=== PATIENT | female | born 1955 | race African-American/Black ===

== ENCOUNTER 2021-05-27 08:17 | Outpatient (REF) | payer OTHER, SELFPAY ==
--- NOTE | ~2021-05-27 | MM_ITS ---
EXAMINATION: MM SCREENING DIGITAL BREAST TOMOSYNTHESIS, BILATERAL CLINICAL INFORMATION: Screening. Asymptomatic. The lifetime risk of breast cancer based on the Tyrer-Cuzick Model is 9%. COMPARISON: Mammography: 05/25/2019 TECHNIQUE: Digital breast tomosynthesis is performed in both the craniocaudal and mediolateral oblique views along with computer-aided detection (CAD). Synthesized 2D images are generated from the tomosynthesis. FINDINGS: There are scattered areas of fibroglandular density (ACR BI-RADS breast composition Category b). There are no significant masses, abnormal calcifications, or other abnormalities. Parenchymal pattern is similar to prior studies. No developing density. The axilla are unremarkable. There are no significant changes. MM/MM tomosynthesis screening BI IMPRESSION: No mammographic evidence of malignancy. ASSESSMENT: BI-RADS 2: Benign RECOMMENDATION: Routine annual mammography screening. This patient's information was entered into a reminder system with a target due date for their next mammogram.
== END 2021-05-27 08:18 | disposition home or self-care (01) ==
LOC: HO.MAMMO 08:17
PROVIDERS: Visit Provider Family Medicine
DX: Z12.31 Encounter for screening mammogram for malignant neoplasm of breast (principal)
CPT/HCPCS: 77063; 77067

== ENCOUNTER 2023-05-02 16:12 | Emergency (ER) | payer OTHER, SELFPAY ==
--- NOTE | ~2023-05-02 | CT_ITS ---
EXAMINATION: CT HEAD WITHOUT CONTRAST CLINICAL INFORMATION: Dizziness. COMPARISON: No relevant prior imaging. TECHNIQUE: Contiguous axial imaging was performed from the skull base to vertex without intravenous administration of contrast. This CT examination was performed using dose optimization techniques as appropriate, variously including the following: *Automated exposure control *Adjustment of mA and/or kV according to patient size (this includes techniques or standardized protocols for targeted exams where dose is matched to indication/reason for exam; i.e. extremities or head) *Use of iterative reconstruction technique DLP: 650 mGy-cm FINDINGS: There is no acute intracranial hemorrhage or abnormal extra-axial collection. No intracranial mass effect or midline shift. Lateral and third ventricles are normal. No hydrocephalus. Champagne-white matter differentiation is preserved and there is no evidence of acute territorial infarct. 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 The calvarium and skull base are otherwise intact. No mastoid or middle ear effusion. Moderate paranasal sinus disease is partially visualized within the right maxillary sinus. 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 Comparison with prior imaging is recommended if available. Alternatively a brain MRI without and with contrast can be obtained for better anatomic characterization. Otherwise unremarkable examination in that there is no evidence of acute territorial infarct or hemorrhage.
[2023-05-02 17:00] VITALS: BP 177/76; PULSE 60; RESP 16; TEMP 36.6; O2SAT 97; BMI 39.3
--- NOTE | 2023-05-02 17:04 | ED.GENADULT ---
[facility] - General Adult General Chief complaint: General Medical Stated complaint: high bp,left leg pain, states off balance Time Seen by Provider: 05/03/23 01:58 Source: patient and family Mode of arrival: ambulatory History of Present Illness HPI narrative: 68-year-old female with headache for the past week and also reports high blood pressure, she has not taken anything for the headache she also reports that she had some blurry vision but otherwise no fever, chills. She denies any speech problems and denies any numbness/tingling/unilateral weakness or facial asymmetry. Related Data Allergies Allergy/AdvReac Type Severity Reaction Status Date / Time codeine Allergy Unknown Verified 05/02/23 17:07 lisinopril AdvReac Cough Verified 05/02/23 17:07 sulfer Allergy Blister Uncoded 05/02/23 17:07 Review of Systems Review of Systems: Pertinent positives and negatives as stated in [facility] Past Medical History Source: nursing notes reviewed Social History Social History Advance Directives: No Advance Directives Information Provided: Yes Physical Exam ED Vital Signs: Vital Signs - 24 hr 05/02/23 17:00 05/03/23 00:54 05/03/23 02:09 Temperature 97.8 F 98.6 F 97.8 F Pulse Rate 60 55 54 Respiratory Rate 16 18 16 Blood Pressure 177/76 H 182/74 H 157/81 H Pulse Oximetry 97 98 97 Oxygen Delivery Method Room Air Room Air Room Air BMI result Body Mass Index 39.3 VITAL SIGNS: Reviewed. GENERAL: Well developed, well nourished, in no acute distress. HEAD: Normocephalic/atraumatic EYES: PERRLA, EOMI OD: 20/50, BOTH: 20/30, OS: 20/30 EARS: Ext canals without abnormality, TMs non-bulging and non-erythematous NOSE: Nares patent bilateral OROPHARYNX: no oral lesions noted, posterior pharynx clear NECK: Supple, no adenopathy LUNGS: Normal breath sounds. No adventitious sounds or accessory muscle use. SpO2<97> CARDIOVASCULAR: Regular rate and rhythm without noted murmurs ABDOMEN: Soft, non-tender, non-distended with bowel sounds. MUSCULOSKELETAL: No tenderness, deformities, or effusions noted on gross inspection. EXTREMITIES: No cyanosis, clubbing or edema. SKIN: Inspection of the skin reveals no rashes NEUROLOGIC: Alert and oriented x 4. Strength and sensation to light touch were grossly intact x 4. Course Course Course Narrative: RME performed by Judi Roblero PA-C. Patient is a 68 year old assigned female at presenting to the emergency department with blurry vision and high blood pressure x4 days. Detailed physical exam and review of systems are deferred to the pug mill operator. Labs and imaging ordered. Patient placed back in the waiting room pending room availability and results. Medical Decision Making Medical Decision Making MDM Narrative: 68-year-old female with history and clinical presentation, DDX: Poorly-controlled blood pressure, headache, patient otherwise appears to be nonfocal and visual acuity does not indicate significant visual changes. I reviewed all investigations and hematologic indices are negative for leukocytosis or left shift, there is no anemia or thrombocytopenia. Chemistry disease do not demonstrate an DEEJAY there is no electrolyte or liver enzyme derangements. High sensitivity troponin is undetectable. Urinalysis is negative for UTI or hematuria. Viral testing is negative for COVID. CT scan does not demonstrate any intracranial bleeding or mass effect but does identify lucencies within the calvarium that appear to be consistent with hemangiomas. Patient remains nonfocal and is otherwise discharged home. Differential Diagnosis Differential Diagnoses: The differential diagnosis associated with the presentation includes Please see the discussion above Admission/Observation Consideration of admission/observation: Escalation of care including admission/observation considered Please see the discussion above Lab Data [facility] Lab Attestation statement: I reviewed the patient's lab results. Please see the discussion above 05/02/23 17:46 05/02/23 20:13 Labs: Lab Results 05/02/23 05/02/23 05/02/23 Range/Units 17:46 17:55 20:13 WBC 7.3 (4.8-10.8) X10*3/uL RBC 5.64 H (4.20-5.50) X10*6/uL Hgb 14.3 (12.0-16.0) g/dl Hct 44.8 (37.0-47.0) % MCV 79.4 L (80.0-98.0) fL MCH 25.4 L (27.0-33.0) pg MCHC 31.9 (31.0-35.0) g/dl RDW 15.3 (11.0-16.0) % Plt Count 330 (160-400) X10*3/uL MPV 10.3 (9.4-12.3) fL Immature Gran % (Auto) 0.5 H (0.0-0.4) % Neut % (Auto) 60.6 (45-73) % Lymph % (Auto) 29.7 (20-40) % Dewitt % (Auto) 7.1 (2-11) % Eos % (Auto) 1.6 (0-4) % Baso % (Auto) 0.5 (0-2) % Lymph # (Auto) 2.2 (1.2-4.9) X10*3/uL Dewitt # (Auto) 0.5 (0.1-1.2) X10*3/uL Eos # (Auto) 0.1 (0.0-0.4) X10*3/uL Baso # (Auto) 0.0 (0.0-0.2) X10*3/uL Abs Immat Gran (auto) 0.04 H (0.00-0.03) X10*3/uL Absolute Neuts (auto) 4.4 (2.0-8.3) x10*3/uL Absolute Nucleated RBC 0.000 (0.0-0.012) X10*3/uL Nucleated RBC % (auto) 0.0 (0.0-0.2) /100WBC Sodium 141 (135-145) mmol/L Potassium 3.8 (3.3-5.1) mmol/L Chloride 104 (96-108) mmol/L Carbon Dioxide 28 (22-29) mmol/L Anion Gap 13 (12-20) BUN 17 H (9-16) mg/dL Creatinine 0.80 (0.5-1.4) mg/dL Estim Creat Clear Calc 69.7 Estimated GFR > 60 POC Glucose (60-115) mg/dL Random Glucose 111 (60-115) mg/dL Calcium 9.8 (8.4-10.2) mg/dL Magnesium 1.8 (1.6-2.6) mg/dL Total Bilirubin 0.4 (0.0-1.0) mg/dL AST 15 (5-31) U/L ALT 15 (0-31) U/L Alkaline Phosphatase 83 (39-117) U/L Troponin I High Sens < 2.7 (<3.5-17.0) ng/L Total Protein 7.6 (6.5-8.0) g/dL Albumin 4.1 (3.5-5.0) g/dL Urine Color Yellow Urine Appearance Clear Urine pH 5.5 (5.0-9.0) Ur Specific [place] 1.025 (1.005-1.025) Urine Protein Negative (Neg-Trace) mg/dL Urine Glucose (UA) Negative (Negative) mg/dL Urine Ketones Negative (Negative) mg/dL Urine Blood Negative (Negative) Urine Nitrite Negative (Negative) Ur Leukocyte Esterase Negative (Negative) COVID-19 (ELIZABETH) Negative (Negative) COVID-19 Clin Com See Note 05/03/23 Range/Units 00:53 WBC (4.8-10.8) X10*3/uL RBC (4.20-5.50) X10*6/uL Hgb (12.0-16.0) g/dl Hct (37.0-47.0) % MCV (80.0-98.0) fL MCH (27.0-33.0) pg MCHC (31.0-35.0) g/dl RDW (11.0-16.0) % Plt Count (160-400) X10*3/uL MPV (9.4-12.3) fL Immature Gran % (Auto) (0.0-0.4) % Neut % (Auto) (45-73) % Lymph % (Auto) (20-40) % Dewitt % (Auto) (2-11) % Eos % (Auto) (0-4) % Baso % (Auto) (0-2) % Lymph # (Auto) (1.2-4.9) X10*3/uL Dewitt # (Auto) (0.1-1.2) X10*3/uL Eos # (Auto) (0.0-0.4) X10*3/uL Baso # (Auto) (0.0-0.2) X10*3/uL Abs Immat Gran (auto) (0.00-0.03) X10*3/uL Absolute Neuts (auto) (2.0-8.3) x10*3/uL Absolute Nucleated RBC (0.0-0.012) X10*3/uL Nucleated RBC % (auto) (0.0-0.2) /100WBC Sodium (135-145) mmol/L Potassium (3.3-5.1) mmol/L Chloride (96-108) mmol/L Carbon Dioxide (22-29) mmol/L Anion Gap (12-20) BUN (9-16) mg/dL Creatinine (0.5-1.4) mg/dL Estim Creat Clear Calc Estimated GFR POC Glucose 147 H (60-115) mg/dL Random Glucose (60-115) mg/dL Calcium (8.4-10.2) mg/dL Magnesium (1.6-2.6) mg/dL Total Bilirubin (0.0-1.0) mg/dL AST (5-31) U/L ALT (0-31) U/L Alkaline Phosphatase (39-117) U/L Troponin I High Sens (<3.5-17.0) ng/L Total Protein (6.5-8.0) g/dL Albumin (3.5-5.0) g/dL Urine Color Urine Appearance Urine pH (5.0-9.0) Ur Specific [place] (1.005-1.025) Urine Protein (Neg-Trace) mg/dL Urine Glucose (UA) (Negative) mg/dL Urine Ketones (Negative) mg/dL Urine Blood (Negative) Urine Nitrite (Negative) Ur Leukocyte Esterase (Negative) COVID-19 (ELIZABETH) (Negative) COVID-19 Clin Com Independent Interpretation I performed an independent interpretation of an: EKG Interpretation: Sinus bradycardia, HR-54, ND/QRS/QTC is within normal limits., no STEMI Radiology Impression Discussion of test interpretation with radiology: I have reviewed the radiologist's reading. Radiologist Impression: Please see the discussion above Chronic Conditions Patient?s care impacted by: Hypertension Critical Care Time Critical Care Time Critical Care Time: Yes Total Critical Care Time: 45 Attestation: I personally attest to this time spent taking care of the patient. Discharge Plan Discharge Clinical Impression: Headache, Blurred vision Patient Disposition: Home, Self-Care Instructions: General Headache (ED), Blurred Vision (ED) Referrals: Meg Wade MD [Primary Care Provider] -
--- NOTE | 2023-05-02 17:05 | ECG_ITS ---
Test Reason : DIZZINESS Blood Pressure : / mmHG Vent. Rate : 054 BPM Atrial Rate : 054 BPM P-R Int : 174 ms QRS Dur : 086 ms QT Int : 408 ms P-R-T Axes : 042 048 037 degrees QTc Int : 386 ms Sinus bradycardia Otherwise normal ECG No previous ECGs available Referred By: Judi Roblero Electronically Signed By:Jason Ernandez
[2023-05-02 18:02] LABS: MANUAL DIFF FLAG NO
[2023-05-02 18:09] LABS: Appearance Urine Clear; Color Urine Yellow; Glucose Urine UA Negative (Negative); Leukocyte Esterase Urine Negative (Negative); Nitrite Urine Negative (Negative); PH 5.5 (5.0-9.0); Specific Gravity - Urine 1.025 (1.005-1.025); Urine Blood Negative (Negative); Urine Ketones Negative (Negative); Urine Protein Negative (Neg-Trace)
[2023-05-02 18:20] LABS: COVID-19 Test Negative (Negative); IDNOW Serial# 152EDE1D
[2023-05-02 18:27] LABS: Basophils Percent Auto 0.5 % (0-2); Eosinophils Absolute Auto 0.1 X10*3/uL (0.0-0.4); Eosinophils Percent Auto 1.6 % (0-4); Hematocrit 44.8 % (37.0-47.0); Hemoglobin 14.3 g/dl (12.0-16.0); Imm Gran Abs Auto 0.04 X10*3/uL (0.00-0.03); Imm Gran Pct Auto 0.5 % (0.0-0.4); Lymphocytes Absolute Auto 2.2 X10*3/uL (1.2-4.9); Lymphocytes Percent Auto 29.7 % (20-40); Mean Corpuscular HGB Conc 31.9 g/dl (31.0-35.0); Mean Corpuscular Hemoglobin 25.4 pg (27.0-33.0); Mean Corpuscular Volume 79.4 fL (80.0-98.0); Mean Platelet Volume 10.3 fL (9.4-12.3); Monocytes Absolute Auto 0.5 X10*3/uL (0.1-1.2); Monocytes Percent Auto 7.1 % (2-11); Neutrophils Absolute Auto 4.4 x10*3/uL (2.0-8.3); Neutrophils Percent Auto 60.6 % (45-73); Platelet Count 330 X10*3/uL (160-400); Red Blood Count 5.64 X10*6/uL (4.20-5.50); Red Cell Distribution Width 15.3 % (11.0-16.0); White Blood Count 7.3 X10*3/uL (4.8-10.8)
[2023-05-02 20:31] LABS: Alanine Aminotransferase 15 U/L (0-31); Albumin Level 4.1 g/dL (3.5-5.0); Alkaline Phosphatase 83 U/L (39-117); Anion Gap 13 (12-20); Aspartate Amino Transferase 15 U/L (5-31); Bilirubin Total 0.4 mg/dL (0.0-1.0); Blood Urea Nitrogen 17 mg/dL (9-16); Calcium 9.8 mg/dL (8.4-10.2); Carbon Dioxide 28 mmol/L (22-29); Chloride 104 mmol/L (96-108); Creatinine Clr Calc Pharmacy 69.7; Estimated Glomerular Filt Rate > 60; Glucose Random 111 mg/dL (60-115); Magnesium 1.8 mg/dL (1.6-2.6); Potassium 3.8 mmol/L (3.3-5.1); Sodium 141 mmol/L (135-145); Total Protein 7.6 g/dL (6.5-8.0)
[2023-05-02 20:39] LABS: Troponin-I High Sensitivity < 2.7 ng/L (<3.5-17.0)
[2023-05-03 00:54] VITALS: BP 182/74; PULSE 55; RESP 18; TEMP 37; O2SAT 98
[2023-05-03 01:07] LABS: Glucose, Whole Blood 147 mg/dL (60-115)
[2023-05-03 02:09] VITALS: BP 157/81; PULSE 54; RESP 16; TEMP 36.6; O2SAT 97
--- NOTE | 2023-05-03 04:00 | PC.NURSE ---
upon assessing pt speaking full clear sentences. axox4. PERRLA. neuros intact. pt ambulatory with steady gait. vision acuity as documented. nad. resp even and unlabored. bp improved. call larry within reach.
== END 2023-05-03 05:19 | disposition home or self-care (01) ==
PROVIDERS: Physician Assistant Medical; Emergency Provider Student in an Organized Health Care Education/Training Program; PCP Family Medicine
DX: R51.9 Headache, unspecified (principal); H53.8 Other visual disturbances; R00.1 Bradycardia, unspecified; R42 Dizziness and giddiness; Z11.52 Encounter for screening for COVID-19; Z79.899 Other long term (current) drug therapy
CPT/HCPCS: 70450; 80053; 81003; 82947; 83735; 84484; 85025; 87635; 93005; 99284

== ENCOUNTER → 2023-05-02 17:05 | Outpatient (BNV) | payer OTHER, SELFPAY | PROVIDERS: Emergency Provider Student in an Organized Health Care Education/Training Program; PCP Family Medicine; Visit Provider Internal Medicine Cardiovascular Disease | DX: R42 Dizziness and giddiness (principal) | CPT/HCPCS: 93010 ==

== ENCOUNTER 2023-07-04 07:26 | Outpatient (REF) | payer OTHER, SELFPAY | END 2023-07-04 07:27 | disposition home or self-care (01) | LOC: HO.MAMMO 07:26 | PROVIDERS: PCP Family Medicine; Visit Provider Nurse Practitioner Family | DX: Z12.31 Encounter for screening mammogram for malignant neoplasm of breast (principal) | CPT/HCPCS: 77063; 77067 ==

== ENCOUNTER → 2023-07-04 07:45 | Outpatient (BNV) | payer OTHER, SELFPAY | PROVIDERS: PCP Family Medicine; Visit Provider Radiology Diagnostic Radiology | DX: Z12.31 Encounter for screening mammogram for malignant neoplasm of breast (principal) | CPT/HCPCS: 77063; 77067 ==

== ENCOUNTER 2024-05-10 10:41 | Outpatient (AMB) | payer OTHER, SELFPAY ==
--- NOTE | 2024-05-10 11:43 | A.OFFVIS_ITS ---
Intake Visit Reasons: recurrent UTI Intake Note: New patient Presents for Recurrent UTI Any Urology Medication: None Antibiotic Allergies: None Blood Thinners: None PVR:0ML Allergies codeine Allergy (Verified 05/02/23 17:07) Unknown lisinopril Adverse Reaction (Verified 05/02/23 17:07) Cough sulfer Allergy (Uncoded 05/02/23 17:07) Blister HPI Comments Details: Rebecca is a 69-year-old female who is here for evaluation due to gross hematuria and recurrent UTIs. The patient is a . She was in the [employer]. She states that she had complicated UTI as she was told the bacteria was resistant to many antibiotics. She states that this may have been due to the fact she had treatment with antibiotics for several infections including a sinus infection and tooth abscess. The patient has history of hysterectomy. I have discussed therapy with use of low-dose estrogen vaginal therapy with Vagifem. I have discussed further evaluation with CT urogram and office cystoscopy. [facility] Medical History (Updated 05/10/24 @ 12:31 by Gabby Rayo MD) Vitamin D deficiency Type 2 diabetes mellitus without complication Restless leg syndrome Primary insomnia Postmenopausal atrophic vaginitis Other obesity due to excess calories Obstructive sleep apnea (adult) (pediatric) Major depressive disorder with single episode Hyperlipidemia Depression Essential (primary) hypertension Disorder of bone density and structure, unspecified Benign neoplasm of colon Allergic rhinitis due to pollen Surgical History (Updated 05/03/24 @ 14:20 by [facility]) H/O: hysterectomy Review of Systems Const All systems reviewed & are unremarkable except as noted in HPI and below Reports no additional complaints Eyes Reports no additional complaints ENT Reports no additional complaints Card Reports no additional complaints Resp Reports no additional complaints GI Reports no additional complaints Reports as per HPI Musc Reports no additional complaints Skin/Breast Reports system reviewed and no additional complaints, except as documented Neuro Reports no additional complaints Psych Reports no additional complaints Endo Reports no additional complaints Alireza/Lymph Reports no additional complaints Aller/Immun Reports no additional complaints Physical Exam Const General: cooperative, healthy appearing and no acute distress Orientation/consciousness: patient oriented x3 HEENT Head: Yes normal to inspection, Yes normocephalic and Yes atraumatic Eyes Conjunctivae: conjunctivae normal Neck Neck: Yes normal visual inspection and Yes trachea midline Chest Chest palpation & inspection: normal inspection of the chest Resp Effort & Inspection: normal respiratory effort GI Inspection: Yes normal to inspection Neuro General: patient oriented x3 Psych Appearance: grossly normal Office Procedures Post Void Residual Post Residual Void Post Void Residual (PVR): 0 21230-Rphj Void Residual by ultrasound Results AMB Urinalysis, Automated UA Leukoctes 0 Az/uL Last Edit by Susi Zarate [facility] on 05/10/24 12:19 UA Nitrite Negative Last Edit by Susi Zarate, [facility] on 05/10/24 12:19 UA Urobilinogen 0.2 mg/dL Last Edit by Susi Zarate, A on 05/10/24 12:1 9 UA Protein 0.3 mg/dL Last Edit by Susi Zarate [facility] on 05/10/24 12:19 UA pH 5.5 Last Edit by Susi Zarate, [facility] on 05/10/24 12:19 UA Blood 0 Hamzah/uL Last Edit by Susi Zarate [facility] on 05/10/24 12:19 UA Specific [place] 1.020 Last Edit by Susi Zarate [facility] on 05/10/24 12: 19 UA Ketone Positive Last Edit by Susi Zarate, [facility] on 05/10/24 12:19 UA Bilirubin 0 mg/dL Last Edit by Susi Zarate [facility] on 05/10/24 12:19 UA Glucose 0 mg/dL Last Edit by Susi Zarate [facility] on 05/10/24 12:19 Results Reviewed Results Reviewed: Laboratory Last Values Urine pH (Auto) 5.5 05/10/24 12:16 Specific [place] (Auto) 1.020 05/10/24 12:16 Urine Protein (Auto) 0.3 mg/dL 05/10/24 12:16 Glucose (UA)(Auto) 0 mg/dL 05/10/24 12:16 Urine Ketones (Auto) Positive 05/10/24 12:16 Urine Blood (Auto) 0 Hamzah/uL 05/10/24 12:16 Urine Nitrite (Auto) Negative 05/10/24 12:16 Urine Bilirubin (Auto) 0 mg/dL 05/10/24 12:16 Urine Urobilinogen (Auto) 0.2 mg/dL 05/10/24 12:16 Leukocyte Esterase (Auto) 0 Az/uL 05/10/24 12:16 Assessment & Plan Assessment & Plan (1) Gross hematuria: Code(s): R31.0 - Gross hematuria Category: Medical Plan estradiol (Vagifem) CT urogram follow-up office cystoscopy Orders: Orders AMB Post Void Residual by ultrasound Today Z13.9 - Encounter for screening, unspecified CT urogram Today R31.0 - Gross hematuria Blood Urea Nitrogen Today R31.0 - Gross hematuria AMB Urinalysis Automated Today Z13.9 - Encounter for screening, unspecified Creatinine Today R31.0 - Gross hematuria Medications: New estradiol (Vagifem) Insert vaginally two times a week Tuesday and at Bedtime 10 mcg vaginal 2XW 24 tabs 1RF estradiol (Vagifem) Insert vaginally two times a week Tuesday and at Bedtime. 10 mcg vaginal 2XW 24 tabs 1RF estradiol (Vagifem) Insert vaginally two times a week Tuesday and at Bedtime. 10 mcg vaginal 2XW 24 tabs 1RF Patient Instructions: The patient had an opportunity to ask questions regarding treatment plan. The patient expressed understanding and agreement with the above treatment plan. The patient is aware they should contact our office by phone for worsening of their current condition or the appearance of new symptoms. Compliance is encouraged with any medications and followup testing that is ordered. It is a privilege to be allowed the opportunity to participate in the urologic care of your patient. If you have any questions or concerns regarding treatment for the above conditions please do not hesitate to contact me. The office telephone contact is [phone]. This note is constructed in part using voice recognition software. While every effort has been made to ensure accuracy transport coordinator errors may have been included. Yours sincerely, Gabby Rayo MD Coding Level of Care Code New Pt Level 4 (89311) Diagnoses Gross hematuria R31.0 CPT Codes Post Residual Void - PVR CPT Code: 31515-Zfjz Void Residual by ultrasound ([id number])
--- OUTSIDE RECORDS SUMMARY | 2024-05-10 11:52 | XMS_ITS | Clinical Summary ---
Author Organization [facility] Address [address] [place] [address] Phone Care Team Providers Care Tobacco Drier Operator Name Role Phone Maribel Sibley Primary Care Provider [phone] Allergies Active Allergy Reactions Criticality Noted Date Comments Codeine Chills 01/23/2024 Lisinopril Cough 01/23/2024 Medications atenoloL (TENORMIN) 50 mg tablet Take 50 mg by mouth daily. Active bisacodyL (DULCOLAX) 5 mg EC tablet Take 2 tabs by mouth right before beginning bowel prep. Follow instructions given by office for timing. 3 Active calcium carbonate-vitam in D 500 mg-5 mcg (200 unit) per tablet Take 1 Tablet by mouth 2 times daily (with meals). Active carboxymethylce llulose (REFRESH PLUS) 0.5 % ophthalmic solution 1 Drop 3 times daily as needed. Active cetirizine (ZyrTEC) 10 mg tablet Take 10 mg by mouth daily. Active cyanocobalamin (VITAMIN B-12) 1,000 mcg tablet Take 1,000 mcg by mouth daily. Active docusate sodium (COLACE) 100 mg capsule Take 100 mg by mouth 2 times daily. Active guaiFENesin 200 mg tablet Take 400 mg by mouth every 4 hours as needed. Active hydroCHLOROthia zide (HYDRODIURIL) 25 mg tablet Take 25 mg by mouth daily. Active losartan (COZAAR) 100 mg tablet Take 100 mg by mouth daily. Active losartan (COZAAR) 50 mg tablet Take 50 mg by mouth daily. Active MULTIVITAMIN ORAL Take by mouth. Activ e naltrexone-bupr opion (Contrave) 8-90 mg per ER tablet Take by mouth. Activ e omega-3 acid ethyl esters (LOVAZA) 1 gram capsule Take by mouth. Activ e phentermine-top iramate 7.5-46 mg capsule, ER multiphase 24 hr Take by mouth. Activ e polyethylene glycol (GoLYTELY) 236-22.74-6.74 -5.86 gram solution Take 4 L by mouth once for 1 dose. (May substitute any PEG) Mix prep according to directions. Drink one 8oz glass at your own pace until half the gallon is completed. Rest and then finish the second half, one 8oz glass at your own pace until gallon is complete. Follow directions given by office for timing. 3 Active simvastatin (ZOCOR) 40 mg tablet Take 1 tablet (40 mg total) by mouth at bedtime. Active triamcinolone (NASACORT) 55 mcg nasal inhaler by Nasal route. Acti ve methocarbamoL (ROBAXIN) 750 mg tablet Take 1 tablet (750 mg total) by mouth 4 (four) times a day for 7 days. 28 each 4 Active Active Problems No known active problems Encounters Date Type Department Care Team Description 02/25/2024 2:29 PM EST - 02/25/2024 4:02 PM EST Emergency [facility] Emergency [address] [place] [address] Pain in abdominal muscle of right flank (Primary Dx) Discharge Disposition: Home or Self Care from Last 3 Months Immunizations Name Administration Dates Next Due Influenza Quadrivalent, 0.5m l, preservative free (Fluarix; FluLaval; Fluzone) ages 6mo and older (Afluria) 3yo and older 12/03/2020,01/15/2020,02/02/2019,12/23 Moderna SARS-CoV-2 COVID-19, mRNA, LNP-S, preservative free 03/25/2021,06/11/2020,05/14/2020 Pneumococcal polysaccharide 23 valent (Pneumovax 23) 2yo and older 03/04/2017 Tdap Tetanus diptheria acell ular pertussis (Boostrix; Adacel) 7yo and older 03/04/2017 Medical History Medical History Date Comments Hypertension Diabetes mellitus (CMS/HCC) High cholesterol Social History Tobacco Use Types Packs/Day Years Used Date Smoking Tobacco: Former Cigarettes Smokeless Tobacco: Never Tobacco Cessation:Counseling Given: Not Answered Alcohol Use Standard Drinks/Week Comments Never 0 (1 standard drink = 0.6 oz pur e alcohol) Comments No Sex and Gender Information Value Date Recorded Sex Assigned at Not on file Legal Sex Female 6:17 PM EST Gender Identity Not on file Sexual Orientation Not on file Obstetrics History Last Filed Vital Signs Vital Sign Reading Time Taken Comments Blood Pressure 146/74 02/25/2024 3:33 PM EST Pulse 59 02/25/2024 3:33 PM EST Temperature 36.5 ??C (97.7 ??F) 02/25/2024 12:[address] Respiratory Rate 18 02/25/2024 3:33 PM EST Oxygen Saturation 99% 02/25/2024 3:33 PM EST Inhaled Oxygen Concentration - - Weight 90.7 kg (200 lb) 02/25/2024 12:41 PM EST Height 154.9 cm (5' 1 ) 02/25/2024 12:41 PM EST Body Mass Index 37.79 02/25/2024 12:41 PM EST Plan of Treatment Upcoming Encounters Date Type Department Care Team (Late st Contact Info) Description 05/24/2024 10:30 AM EST Office Visit Obstetrics & Gynecology - [address] [address] Debbie Aguilar, [facility] [address] [place] [id number] Health Maintenance Due Date Last Done Comments Breast Cancer Screening 1955 Zoster Vaccines (1 of 2) 2007 Pneumococcal Vaccine: 50+ Years (2 of 2 - PCV) 03/04/2018 03/04/2017 Depression Screening 06/13/2022 Falls Risk Assessment 06/13/2022 Hepatitis C Screening 06/13/2022 Medicare Annual Wellness Visit 06/13/2022 Osteoporosis Screening (Bone Density Screening) 06/13/2022 Social Influencers of Health Screening 06/13/2022 COVID-19 Vaccine ( season) 2023 03/25/2021, 06/11/2020, 05/14/2020 Influenza Vaccine (#1) 2023 , 01/15/2020, 02/02/2019, Additional history exists DTaP,Tdap,and Td Vaccines (2 - Td or Tdap) 03/04/2027 03/04/2017 Colorectal Cancer Screening: Colonoscopy 01/21/2028 01/20/2023 RSV Immunization Patients 60+ Years Old (1 - 1-dose 75+ series) 01/14/2032 HIB Vaccines Aged Out No longer eligi ble based on patient's age to complete this topic HPV Vaccines Aged Out No longer eligi ble based on patient's age to complete this topic Hepatitis A Vaccines Aged Out No long er eligible based on patient's age to complete this topic Hepatitis B Vaccines Aged Out No long er eligible based on patient's age to complete this topic IPV Vaccines Aged Out No longer eligi ble based on patient's age to complete this topic MMR Vaccines Aged Out No longer eligi ble based on patient's age to complete this topic Meningococcal ACWY Vaccine Aged Out N o longer eligible based on patient's age to complete this topic Meningococcal B Vacine Aged Out No lo nger eligible based on patient's age to complete this topic RSV Immunization Patients Under 20 months Aged Out No longer eligible based on patient's age to complete this topic Varicella Vaccines Aged Out No longer eligible based on patient's age to complete this topic Procedures Procedure Name Priority Date/Time Associated Diagnosis Comments [place] URINE CULTURE TUBE STAT 02/25/2024 1:32 PM EST URINALYSIS WITH REFLEX MICROSCOPIC AND CULTURE STAT 02/25/2024 1:32 PM EST CBC WITH AUTO DIFFERENTIAL STAT 02/25/2024 1:32 PM EST URINALYSIS WITH REFLEX MICROSCOPIC AND CULTURE STAT 02/25/2024 1:32 PM EST COMPREHENSIVE METABOLIC PANEL STAT 02/25/2024 1:32 PM EST CBC AND DIFFERENTIAL STAT 02/25/2024 1:32 PM EST HM COLONOSCOPY Routine 01/20/2023 from Last 3 Months or Most Recently Relevant to Health Maintenance Results * Urinalysis with reflex microscopic and culture (02/25/2024 1:32 PM EST) Specific [place] Urine 1.020 1.003 - 1.030 LAB URINALYSIS - AUTOMATED METHOD 02/25/2024 1:52 PM [facility] pH, Urine 7.0 5.0 - 8.0 pH LAB URINALYSIS - AUTOMATED METHOD 02/25/2024 1:52 PM [facility] Leukocytes, Urine Negative Negative LAB URINALYSIS - AUTOMATED METHOD 02/25/2024 1:52 PM [facility] Nitrite, Urine Negative Negative LAB URINALYSIS - AUTOMATED METHOD 02/25/2024 1:52 PM [facility] Protein, Urine Negative <=Trace mg/dL LAB URINALYSIS - AUTOMATED METHOD 02/25/2024 1:52 PM [facility] Glucose, Urine Negative Negative mg/dL LAB URINALYSIS - AUTOMATED METHOD 02/25/2024 1:52 PM [facility] Ketones, Urine Negative Negative mg/dL LAB URINALYSIS - AUTOMATED METHOD 02/25/2024 1:52 PM [facility] Urobilinogen, Urine 0.2 0.2 - 1.0 mg/dL LAB URINALYSIS - AUTOMATED METHOD 02/25/2024 1:52 PM [facility] Bilirubin, Urine Negative Negative LAB URINALYSIS - AUTOMATED METHOD 02/25/2024 1:52 PM [facility] Blood, Urine Negative Negative LAB URINALYSIS - AUTOMATED METHOD 02/25/2024 1:52 PM [facility] Urine Urine specimen obtained by clean catch procedure / Unknown Non-blood Collection / Unknown 02/25/2024 1:32 PM EST 02/25/2024 1:43 PM EST Reddy P Neenan DO LAB URINE ORDERABLES Final Res ult Performing Organization Address [facility]/ZIP Co de Phone Number [facility] [address] [place] [address], [place] [phone] * [place] urine culture tube (02/25/2024 1:32 PM EST) Pathologist [facility] Extra Tube Hold for add-ons. 02/25/2024 3:02 PM EST [facility] Comment:Auto resulted. Urine Urine specimen obtained by clean catch procedure / Unknown Non-blood Collection / Unknown 02/25/2024 1:32 PM EST 02/25/2024 1:43 PM EST Reddy Arroyo DO LAB URINE ORDERABLES Final Res ult Performing Organization Address [facility]/ZIP Co de Phone Number [facility] [address] [place] [address], [place] [phone] * (ABNORMAL) CBC auto differential (02/25/2024 1:32 PM EST) [facility] WBC 8.7 4.8 - 10.8 K/mcL LAB HEMETOLOGY METHOD 02/25/2024 1:48 PM [facility] RBC 5.10(H) 3.80 - 4.80 M/mcL LAB HEMETOLOGY METHOD 02/25/2024 1:48 PM [facility] Hemoglobin 12.9 11.5 - 16.0 g/dL LAB HEMETOLOGY METHOD 02/25/2024 1:48 PM [facility] Hematocrit 40.8 35.0 - 47.0 % LAB HEMETOLOGY METHOD 02/25/2024 1:48 PM [facility] MCV 80.5 79.0 - 98.0 FL LAB HEMETOLOGY METHOD 02/25/2024 1:48 PM [facility] MCH 25.4(L) 27.0 - 32.0 pcg LAB HEMETOLOGY METHOD 02/25/2024 1:48 PM [facility] MCHC 31.6(L) 32.0 - 37.0 g/dL LAB HEMETOLOGY METHOD 02/25/2024 1:48 PM [facility] RDW 15.2(H) 11.0 - 15.0 % LAB HEMETOLOGY METHOD 02/25/2024 1:48 PM [facility] Platelets 348 130 - 400 K/mcL LAB HEMETOLOGY METHOD 02/25/2024 1:48 PM [facility] MPV 9.7 7.0 - 11.0 FL LAB HEMETOLOGY METHOD 02/25/2024 1:48 PM [facility] NRBC 0.0 <1.0 % LAB HEMETOLOGY METHOD 02/25/2024 1:48 PM [facility] NRBC Absolute 0.00 <0.10 K/mcL LAB HEMETOLOGY METHOD 02/25/2024 1:48 PM [facility] Neutrophils Relative 67.6 % LAB HEMETOLOGY METHOD 02/25/2024 1:48 PM [facility] Lymphocytes Relative 24.1 % LAB HEMETOLOGY METHOD 02/25/2024 1:48 PM [facility] Monocytes Relative 6.2 % LAB HEMETOLOGY METHOD 02/25/2024 1:48 PM [facility] Eosinophils Relative 1.3 % LAB HEMETOLOGY METHOD 02/25/2024 1:48 PM [facility] Basophils Relative 0.5 % LAB HEMETOLOGY METHOD 02/25/2024 1:48 PM [facility] Immature Granulocytes Relative 0.3 % LAB HEMETOLOGY METHOD 02/25/2024 1:48 PM [facility] Neutrophils Absolute 5.91 1.50 - 7.00 K/mcL LAB HEMETOLOGY METHOD 02/25/2024 1:48 PM EST [facility] Lymphocytes Absolute 2.11 1.00 - 5.00 K/mcL LAB HEMETOLOGY METHOD 02/25/2024 1:48 PM EST [facility] Monocytes Absolute 0.54 0.20 - 1.00 K/mcL LAB HEMETOLOGY METHOD 02/25/2024 1:48 PM EST [facility] Eosinophils Absolute 0.11 0.00 - 0.50 K/[facility] LAB HEMETOLOGY METHOD 02/25/2024 1:48 PM EST [facility] Basophils Absolute 0.04 0.00 - 0.20 K/[facility] LAB HEMETOLOGY METHOD 02/25/2024 1:48 PM EST [facility] Immature Granulocytes Absolute 0.03 0.00 - 0.03 K/[facility] LAB HEMETOLOGY METHOD 02/25/2024 1:48 PM EST [facility] Blood Venous blood specimen / Unknown Venipuncture / Unknown 02/25/2024 1:32 PM EST 02/25/2024 1:42 PM EST us Reddy Arroyo DO LAB BLOOD ORDERABLES Final Res ult [facility] [address] [place] [address], * (ABNORMAL) Comprehensive metabolic panel (02/25/2024 1:32 PM EST) Sodium 137 133 - 145 mmol/L LAB CHEMISTRY METHOD 02/25/2024 2:20 PM EST [facility] Potassium 4.0 3.5 - 5.5 mmol/L LAB CHEMISTRY METHOD 02/25/2024 2:20 PM EST [facility] Comment:Hemolysis present Chloride 100 96 - 110 mmol/L LAB CHEMISTRY METHOD 02/25/2024 2:20 PM EST [facility] CO2 35(H) 21 - 32 mmol/L LAB CHEMISTRY METHOD 02/25/2024 2:20 PM [facility] Anion Gap 2(L) 3 - 11 LAB CHEMISTRY METHOD 02/25/2024 2:20 PM [facility] Glucose 176(H) 70 - 100 mg/dL LAB CHEMISTRY METHOD 02/25/2024 2:20 PM [facility] BUN 19 5 - 25 mg/dL LAB CHEMISTRY METHOD 02/25/2024 2:20 PM [facility] Creatinine 1.00 0.50 - 1.10 mg/dL LAB CHEMISTRY METHOD 02/25/2024 2:20 PM [facility] eGFR 62 >=60 mL/min/1. 73m2 LAB CHEMISTRY METHOD 02/25/2024 2:20 PM [facility] Comment:Calculation based on the??Chronic Kidney Disease Epidemiology Collaboration (CKD-EPI) equation refit??without adjustment for race. BUN/Creatinine Ratio 19.0 LAB CHEMISTRY METHOD 02/25/2024 2:20 PM [facility] Calcium 9.6 8.5 - 10.5 mg/dL LAB CHEMISTRY METHOD 02/25/2024 2:20 PM [facility] AST (SGOT) 20 10 - 42 unit/L LAB CHEMISTRY METHOD 02/25/2024 2:20 PM [facility] Comment:Hemolysis present ALT (SGPT) 21 10 - 60 unit/L LAB CHEMISTRY METHOD 02/25/2024 2:20 PM [facility] Alkaline Phosphatase 93 42 - 121 unit/L LAB CHEMISTRY METHOD 02/25/2024 2:20 PM [facility] Total Protein 7.7 6.0 - 8.0 g/dL LAB CHEMISTRY METHOD 02/25/2024 2:20 PM [facility] Albumin 3.9 3.2 - 5.0 g/dL LAB CHEMISTRY METHOD 02/25/2024 2:20 PM [facility] Total Bilirubin 0.7 0.0 - 1.4 mg/dL LAB CHEMISTRY METHOD 02/25/2024 2:20 PM EST [facility] Blood Venous blood specimen / Unknown Venipuncture / Unknown 02/25/2024 1:32 PM EST 02/25/2024 1:43 PM EST Reddy Arroyo DO LAB BLOOD ORDERABLES Final Res ult [facility] [address] [place] [address], [place] [phone] * Colonoscopy (01/20/2023) Colonoscopy NO INTERPRETATION , ABSTRACTED Anatomical Region Laterality Modality Other Historical Provider MD HEALTH MAINTENANCE Final Result from Last 3 Months or Most Recently Relevant to Health Maintenance Additional Health Concerns Infection Onset Date Last Indicated ESBL 01/23/2024 01/23/2024 Insurance [employer] [facility] MEDICARE ADVANTAGE on file [employer] Care Teams Tobacco Drier Operator Relationship Specialty Start Date End Date Maribel Sibley [address] [place] [address] PCP - General 01/23/24
== END 2024-05-10 12:33 | disposition home or self-care (01) ==
PROVIDERS: PCP Family Medicine; Visit Provider Urology
DX: R31.0 Gross hematuria (principal); Z13.9 Encounter for screening, unspecified
CPT/HCPCS: 99204

== ENCOUNTER → 2024-05-10 10:41 | Outpatient (BNVA) | payer OTHER, SELFPAY | PROVIDERS: PCP Family Medicine; Visit Provider Urology | DX: R31.0 Gross hematuria (principal) | CPT/HCPCS: 51798; 81003; 99202 ==

== ENCOUNTER 2024-06-11 09:53 | Outpatient (REF) | payer OTHER, SELFPAY ==
[2024-06-11 13:24] LABS: Blood Urea Nitrogen 14 mg/dL (9-16); Estimated Glomerular Filt Rate > 60
== END 2024-06-11 09:54 | disposition home or self-care (01) ==
LOC: HO.10HDL 09:53
PROVIDERS: Visit Provider Urology
DX: R31.0 Gross hematuria (principal)
CPT/HCPCS: 36415; 82565; 84520

== ENCOUNTER 2024-07-11 11:05 | Outpatient (REF) | payer OTHER, SELFPAY ==
--- NOTE | ~2024-07-11 | CT_ITS ---
CLINICAL HISTORY: R31.0 - Gross hematuria CT abdomen and pelvis with and without contrast Comparison: None Findings: The lung bases are clear. Unremarkable gallbladder and solid organs. No urolithiasis. No bowel obstruction, pneumoperitoneum, or pneumatosis. The patient is status post hysterectomy. There is a 3.6 cm left lower quadrant cyst likely adnexal. The right ovary is not identified. The bones are intact. IMPRESSION: 1. Normal urinary tract. 2. 3.6 cm left lower quadrant cyst likely adnexal. It appears to be a benign thin-walled cyst however there may be a small septation. Please correlate with pelvic sonography. This document has been electronically signed by: Fortunato Rodriguez MD on 07/12/2024 11:39:11
[2024-07-11] MEDS: iohexoL 350 MG/ML 100 ML INFUS..BTL IV (11:48)
--- OUTSIDE RECORDS SUMMARY | 2024-07-11 13:24 | XMS_ITS | Clinical Summary ---
Author Organization [facility] Address [address] [place] [address] Phone Care Team Providers Care Lettuce Trimmer Name Role Phone Maribel Sibley Primary Care Provider [phone] Allergies Active Allergy Reactions Criticality Noted Date Comments Codeine Chills 01/23/2024 Lisinopril Cough 01/23/2024 Sulfur 05/24/2024 Medications atenoloL (TENORMIN) 50 mg tablet Take 50 mg by mouth daily. Active bisacodyL (DULCOLAX) 5 mg EC tablet Take 2 tabs by mouth right before beginning bowel prep. Follow instructions given by office for timing. Active calcium carbonate-vitam in D 500 mg-5 [...] for 7 days. 28 each 4 Active estradioL (ESTRACE) 0.01 % (0.1 mg/gram) vaginal cream Insert 2 g into the vagina 1 (one) time each day. Active Active Problems Problem Noted Date Diagnosed Date Primary hypertension 05/24/2024 Benign neoplasm of colon 05/24/2024 Overview (05/24/2024): Tubular adenoma of colon x 1 04/21/07, colonoscopy 10/13/16 Disorder of bone density and structure, unspecif ied 05/24/2024 H/O: depression 05/24/2024 H/O: hysterectomy 05/24/2024 Overview (05/24/2024): 2017 for DUB Other hyperlipidemia 05/24/2024 Major depressive disorder 05/24/2024 HOSEA (obstructive sleep apnea) 05/24/2024 Class 2 obesity with body ma ss index (BMI) of 38.0 to 38.9 in adult 05/24/2024 Primary insomnia 05/24/2024 Restless leg syndrome 05/24/2024 Type 2 diabetes mellitus wit hout complication, without long-term current use of insulin ([facility] V24, [facility] V28) 05/24/2024 Vitamin D deficiency 05/24/2024 Encounters Date Type Department Care Team Description 06/18/2024 12:38 PM EDT - 06/18/2024 11:59 PM EDT Hospital Encounter [facility] Ultrasound [address] [place] [address] Adnexal cyst Discharge Disposition: Home or Self Care 06/12/2024 Telephone Obstetrics & Gynecology [facility] [address] [place] [phone] Debbie Aguilar CNM 05/24/2024 10:30 AM EST Office Visit Obstetrics & Gynecology [facility] [address] [place] [phone] Debbie Aguilar CNM Adnexal cyst (Primary Dx); Vagina bleeding; H/O: hysterectomy from Last 3 Months Immunizations Name Administration Dates Next Due Influenza Quadrivalent, 0.5m l, preservative free (Fluarix; FluLaval; Fluzone) ages 6mo and older (Afluria) 3yo and older 12/03/2020,01/15/2020,02/02/2019,12/23 Moderna SARS-CoV-2 COVID-19, mRNA, LNP-S, preservative free 03/25/2021,06/11/2020,05/14/2020 Pneumococcal polysaccharide 23 valent (Pneumovax 23) 2yo and older 03/04/2017 Tdap Tetanus diptheria acell ular pertussis (Boostrix; Adacel) 7yo and older 03/04/2017 Surgical History Surgery Date Site/Laterality Comments SECTION HYSTERECTOMY Medical History Medical History Date Comments Hypertension Diabetes mellitus ([facility] V24, [facility] V28) High cholesterol Social History Tobacco Use Types Packs/Day Years Used Date Smoking Tobacco: Former Cigarettes Smokeless Tobacco: Never Tobacco Cessation:Counseling Given: Not Answered Alcohol Use Standard Drinks/Week Comments Never 0 (1 standard drink = 0.6 oz pur e alcohol) Comments No Sex and Gender Information Value Date Recorded Sex Assigned at Female 06/12/2024 12:52 PM EDT Legal Sex Female 6:17 PM EST Gender Identity Female 06/12/2024 12:52 PM EDT Sexual Orientation Straight 06/12/2024 12 :52 PM EDT Occupation Industry Job Start Date Job End Date Retired - [employer] ( 20 + yrs) Not on file Not on yahir e Not on file Obstetrics History Para Term AB IAB SAB Ectopic Multiple Livin g Live Births 2 2 2 2 Date Outcome GA Total Labor Labor/2nd/3rd Weight Sex Type Anes PTL Matilde A1 A5 Name Clin Para Para Last Filed Vital Signs Vital Sign Reading Time Taken Comments Blood Pressure 113/63 05/24/2024 10:37 AM EST Pulse 70 05/24/2024 10:37 AM EST Temperature 36.5 ??C (97.7 ??F) 02/25/2024 1 2:41 PM EST Respiratory Rate 18 02/25/2024 3:33 PM EST Oxygen Saturation 99% 02/25/2024 3:33 PM EST Inhaled Oxygen Concentration - - Weight 93.4 kg (205 lb 14.4 oz) 025 10:37 AM EST Height 154.9 cm (5' 1 ) 02/25/2024 12:4 1 PM EST Body Mass Index 38.9 02/25/2024 12:41 PM EST Plan of Treatment Health Maintenance Due Date Last Done Comments Breast Cancer Screening 1955 Diabetes: Annual Foot Exam 1967 Diabetes: Annual Retina Eye Exam 1965 Cholesterol Screening (Lipid Panel) 06/13/2022 Depression Screening 06/13/2022 Falls Risk Assessment 06/13/2022 Hepatitis C Screening 06/13/2022 Osteoporosis Screening (Bone Density Screening) 06/13/2022 Social Influencers of Health Screening 06/13/2022 Diabetes: Annual Urine Albumin-Creatinine Ratio (uACR) 05/24/2024 Diabetes: Blood Sugar Control Test (HGBA1C) 05/24/2024 COVID-19 Vaccine ( season) 2024 05/14/2024, 03/31/2023, 02/24/2022, Additional history exists Diabetes: Annual GFR (Glomerular Filtration Rate) 02/24/2025 02/25/2024, 01/23/2024 Hypertension/CHF/CAD Annual BMP Blood Test 02/24/2025 02/25/2024, 01/23/2024 DTaP,Tdap,and Td Vaccines (5 - Td or Tdap) 03/04/2027 03/04/2017, 06/19/2006, 04/21/2006, Additional history exists Colorectal Cancer Screening: Colonoscopy 01/21/2028 01/20/2023 RSV Immunization Adult Patients (1 - 1-dose 75+ series) 01/14/2032 Zoster Vaccines Completed 04/11/2020, 12/26/2019 Pneumococcal Vaccine: 50+ Years Completed 09/18/2021, 03/04/2017 Influenza Vaccine Completed 01/27/2024, , 02/19/2022, Additional history exists HIB Vaccines Aged Out No longer eligi [...] age to complete this topic Meningococcal B Vaccine Aged Out No l onger eligible based on patient's age to complete this topic RSV Immunization Patients Under 20 months Aged Out No longer eligible based on patient's age to complete this topic Varicella Vaccines Aged Out No longer eligible based on patient's age to complete this topic Procedures Procedure Name Priority Date/Time Associated Diagnosis Comments US PELVIS NON OB COMPLETE W TRANSVAGINAL Routine 06/18/2024 1:15 PM EDT Adnexal cyst TRICHOMONAS VAGINALIS ANTIGEN Routine 05/24/2024 11:10 AM EST Vagina bleeding WET PREP, GENITAL Routine 05/24/2024 11: 10 AM EST Vagina bleeding COMPREHENSIVE METABOLIC PANEL STAT 02/25/2024 1:32 PM EST HM COLONOSCOPY Routine 01/20/2023 from Last 3 Months or Most Recently Relevant to Health Maintenance Results * US Pelvis Non OB Complete w Transvaginal (06/18/2024 1:15 PM EDT) Anatomical Region Laterality Modality Body, Pelvis Ultrasound 06/19/2024 10:4 8 AM EDT Impressions 06/19/2024 10:54 AM EDT 1. ??Total abdominal hysterectomy/bilateral salpingo-oophorectomy. 2. ??Oval cyst with a septation in the left adnexa, correlating with findings noted on a comparison CT. ??There is a solitary moderately thick septation. ??This is likely benign and can be monitored for stability with follow-up ultrasound in 6- 12 months. -------- FINAL REPORT -------- Dictated By: Trey Lawson Dictated Date: 06/19/2024 10:48 ET Assigned Physician: Trey Lawson Reviewed and Electronically Signed By: Trey Lawson Signed Date: 06/19/2024 10:54 ET Workstation ID: [id number] Transcribed By: Self Edit Transcribed Date: 06/19/2024 10:48 ET Narrative 06/19/2024 10:54 AM EDT Procedure: Ultrasound of the pelvis. HISTORY: pelvic pain, s/p hysterectomy and left adnexal cyst noted on CT. TECHNIQUE: Transabdominal and endovaginal grayscale, color Doppler, and spectral Doppler ultrasound evaluation of the pelvis. COMPARISON: CT dated 01/23/2024. FINDINGS: The uterus and ovaries are surgically absent. There is no free fluid in the pelvis. There is a 4.1 x 2.3 x 3.2 cm oval-shaped fluid collection or cyst with a solitary thick septation in the left adnexa. ??This is only seen on transabdominal imaging. ??It correlates with findings noted on the comparison CT. Procedure Note Trey Lawson MD - 06/19/2024 Procedure: Ultrasound of the pelvis. HISTORY: pelvic pain, s/p hysterectomy and left adnexal cyst noted onCT. TECHNIQUE: Transabdominal and endovaginal grayscale, color Doppler, andspectral Doppler ultrasound evaluation of the pelvis. COMPARISON: CT dated 01/23/2024. FINDINGS: The uterus and ovaries are surgically absent. There is no free fluid in the pelvis. There is a 4.1 x 2.3 x 3.2 cm oval-shaped fluid collection or cyst with asolitary thick septation in the left adnexa. This is only seen ontransabdominal imaging. It correlates with findings noted on thecomparison CT. IMPRESSION: 1. Total abdominal hysterectomy/bilateral salpingo-oophorectomy. 2. Oval cyst with a septation in the left adnexa, correlating withfindings noted on a comparison CT. There is a solitary moderately thickseptation. This is likely benign and can be monitored for stability withfollow-up ultrasound in 6-12 months. -------- FINAL REPORT -------- Dictated By: Trey Lawson Dictated Date: 06/19/2024 10:48 ET Assigned Physician: Trey Lawson Reviewed and Electronically Signed By: Trey Lawson Signed Date: 06/19/2024 10:54 ET Workstation ID: [id number] Transcribed By: Self Edit Transcribed Date: 06/19/2024 10:48 ET Debbie Aguilar CNM IMG US PROCEDURES Final Resul t * Trichomonas vaginalis antigen (05/24/2024 11:10 AM EST) Trichomonas vaginalis Negative Negative 05/24/2024 1:14 PM EST [facility] Swab Vaginal structure / Unknown Non-blood Collection / Unknown 05/24/2024 11:10 AM EST 05/24/2024 12:09 PM EST Debbie Aguilar CNM LAB MICROBIOLOGY - GENERAL OR DERABLES Final Result [facility] [address] [place] [address], [place] [phone] * Wet prep, genital (05/24/2024 11:10 AM EST) Clue Cells, Wet Prep Negative Negative 05/24/2024 1:04 PM [facility] Yeast, Wet Prep Negative Negative 05/24/2024 1:04 PM [facility] Trichomonas, Wet Prep Indeterminate Negative 05/24/2024 1:04 PM [facility] Comment:Refer to Trichomonas antigen. Swab Vaginal structure / Unknown Non-blood Collection / Unknown 05/24/2024 11:10 AM EST 05/24/2024 12:09 PM EST Debbie Aguilar CNM LAB MICROBIOLOGY - GENERAL OR DERABLES Final Result [facility] [address] [place] [address], * (ABNORMAL) Comprehensive metabolic panel (02/25/2024 1:32 PM EST) Pathologist [facility] Sodium 137 133 - 145 mmol/L LAB CHEMISTRY METHOD 02/25/2024 2:20 PM [facility] Potassium 4.0 3.5 - 5.5 mmol/L LAB CHEMISTRY METHOD 02/25/2024 2:20 PM [facility] Comment:Hemolysis present Chloride 100 96 - 110 mmol/L LAB CHEMISTRY METHOD 02/25/2024 2:20 PM [facility] CO2 35(H) 21 - 32 mmol/L LAB CHEMISTRY METHOD 02/25/2024 2:20 PM [facility] Anion Gap 2(L) 3 - 11 LAB CHEMISTRY METHOD 02/25/2024 2:20 PM [facility] Glucose 176(H) 70 - 100 mg/dL LAB CHEMISTRY METHOD 02/25/2024 2:20 PM [facility] BUN 19 5 - 25 mg/dL LAB CHEMISTRY METHOD 02/25/2024 2:20 PM [facility] Creatinine 1.00 0.50 - 1.10 mg/dL LAB CHEMISTRY METHOD 02/25/2024 2:20 PM [facility] eGFR 62 >=60 mL/min/1. 73m2 LAB CHEMISTRY METHOD 02/25/2024 2:20 PM [facility] Comment:Calculation based on the??Chronic Kidney Disease Epidemiology Collaboration (CKD-EPI) equation refit??without adjustment for race. BUN/Creatinine Ratio 19.0 LAB CHEMISTRY METHOD 02/25/2024 2:20 PM [facility] Calcium 9.6 8.5 - 10.5 mg/dL LAB CHEMISTRY METHOD 02/25/2024 2:20 PM [facility] AST (SGOT) 20 10 - 42 unit/L LAB CHEMISTRY METHOD 02/25/2024 2:20 PM [facility] Comment:Hemolysis present ALT (SGPT) 21 10 - 60 unit/L LAB CHEMISTRY METHOD 02/25/2024 2:20 PM [facility] Alkaline Phosphatase 93 42 - 121 unit/L LAB CHEMISTRY METHOD 02/25/2024 2:20 PM [facility] Total Protein 7.7 6.0 - 8.0 g/dL LAB CHEMISTRY METHOD 02/25/2024 2:20 PM [facility] Albumin 3.9 3.2 - 5.0 g/dL LAB CHEMISTRY METHOD 02/25/2024 2:20 PM [facility] Total Bilirubin 0.7 0.0 - 1.4 mg/dL LAB CHEMISTRY METHOD 02/25/2024 2:20 PM [facility] Blood Venous blood specimen / Unknown Venipuncture / Unknown 02/25/2024 1:32 PM EST 02/25/2024 1:43 PM EST Reddy Arroyo DO LAB BLOOD ORDERABLES Final Res ult [facility] [address] [place] [address], * Colonoscopy (01/20/2023) Colonoscopy NO INTERPRETATION , ABSTRACTED Anatomical Region Laterality Modality Other Historical Provider MD HEALTH MAINTENANCE Final Result from Last 3 Months or Most Recently Relevant to Health Maintenance Additional Health Concerns Infection Onset Date Last Indicated ESBL 01/23/2024 01/23/2024 Insurance [facility] Care Teams Lettuce Trimmer Relationship Specialty Start Date End Date Maribel Sibley [address] [place] [phone] PCP - General 01/23/24
== END 2024-07-11 11:06 | disposition home or self-care (01) ==
LOC: HO.CT 11:05
PROVIDERS: Visit Provider Urology
DX: R31.0 Gross hematuria (principal)
CPT/HCPCS: 74178; Q9967

== ENCOUNTER → 2024-07-11 11:08 | Outpatient (BNV) | payer OTHER, SELFPAY | PROVIDERS: Visit Provider Radiology Diagnostic Radiology | DX: R31.0 Gross hematuria (principal) | CPT/HCPCS: 74178 ==

== ENCOUNTER 2024-08-06 09:31 | Outpatient (AMB) | payer OTHER, SELFPAY ==
--- NOTE | 2024-08-06 09:37 | MHC.OFFVIS ---
Intake Visit Reasons: Cysto/ CT follow up Intake Note: Patient presents for cystoscopy/CT results 07/[address] Urology Medication: None Antibiotic Allergies: None Blood Thinners: None Allergies codeine Allergy (Verified 08/06/24 09:38) Unknown lisinopril Adverse Reaction (Verified 08/06/24 09:38) Cough sulfer Allergy (Uncoded 05/02/23 17:07) Blister HPI Comments Details: 08/06/2024-here for office cystoscopy. Cystoscopy findings: There is a growth extruding from the left ureteral orifice, mild to moderate trabeculations. 69-year-old female presenting for follow-up I have discussed on CT urogram urinary tract was within normal limits. left ovarian cyst noted. The patient states that she is being followed by field marketing representative for the left ovarian cyst and has been referred to field marketing representative Oncology for further testing and management. I have discussed further management to include cystoscopy TURBT with left ureteroscopy and possible bilateral retrogrades Results - CT Scan: 07/11/2024-CT urogram --Kidneys are normal, adnexa cyst present on the left side, 3.6 cm left lower quadrant cyst likely adnexal. 05/10/24--Rebecca is a 69-year-old female who is here for evaluation due to gross hematuria and recurrent UTIs. The patient is a . She was in the [employer]. She states that she had complicated UTI as she was told the bacteria was resistant to many antibiotics. She states that this may have been due to the fact she had treatment with antibiotics for several infections including a sinus infection and tooth abscess. The patient has history of hysterectomy. I have discussed therapy with use of low-dose estrogen vaginal therapy with Vagifem. I have discussed further evaluation with CT urogram and office cystoscopy. [facility] Medical History Vitamin D deficiency Type 2 diabetes mellitus without complication Restless leg syndrome Primary insomnia Postmenopausal atrophic vaginitis Other obesity due to excess calories Obstructive sleep apnea (adult) (pediatric) Major depressive disorder with single episode Hyperlipidemia Depression Essential (primary) hypertension Disorder of bone density and structure, unspecified Benign neoplasm of colon Allergic rhinitis due to pollen Surgical History H/O: hysterectomy Review of Systems Const All systems reviewed & are unremarkable except as noted in HPI and below Reports no additional complaints Eyes Reports no additional complaints ENT Reports no additional complaints Card Reports no additional complaints Resp Reports no additional complaints GI Reports no additional complaints Reports as per HPI Musc Reports no additional complaints Skin/Breast Reports system reviewed and no additional complaints, except as documented Neuro Reports no additional complaints Psych Reports no additional complaints Endo Reports no additional complaints Alireza/Lymph Reports no additional complaints Aller/Immun Reports no additional complaints Office Procedures Cystoscopy Consent Discussed risk and benefit or proposed procedure with the patient. Information consent for procedure given to the patient. Discussed technical aspects, risks, benefits and alternatives in full. Addressed all of the patient's questions and concerns regarding the procedure. The patient demonstrated knowledge and understanding. They wish to proceed with this procedure. Preparation The patient was prepped in the usual manner. A esol instructor was present and in the room. Genitalia was prepped with betadine solution in a sterile manner. Lidocaine Jelly 2% was placed into the urethra and 16Fr flexible Olympus cystoscope was inserted into the meatus after adequate lubrication. Procedure Time out per protocol performed. Speculum used as indicated for adequate visualization of urethra, the flexible cystoscope is passed transurethrally: The bladder was inspected in its entirety with utilization retroflexion displaying: Tumor(s): There is a growth extruding from the left ureteral orifice Trabeculation: Mild to Moderate Mucosal Erthema: NA Orifices: normal shape and position Urethra: normal [id number] DISPOSABLE SCOPE URO-G FLEXIBLE SCOPE Procedure code (CPT) selection complete Office Meds lidocaine HCl 2 % mucosal jelly in applicator Performing Provider: Gabby Rayo MD [facility] Administered by: Zulma Martinez RN on 08/06/24 09:53 Dose Route Admin Location Dispensed Lot Number Expiration Date [facility] [employer] 10 mL intra-urethral 10 mL ciprofloxacin HCl 500 mg tablet Performing Provider: Gabby Rayo MD Performing Location: [facility] [place] Administered by: Zulma Martinez RN on 08/06/24 09:53 Dose Route Admin Location Dispensed Lot Number Expiration Date [facility] [employer] 500 mg PO 1 tab phenazopyridine 200 mg tablet Performing Provider: Gabby Rayo MD Performing Location: [facility] Administered by: Zulma Martinez RN on 08/06/24 09:53 Dose Route Admin Location Dispensed Lot Number Expiration Date [employer] 200 mg PO 1 tab Results AMB Urinalysis, Automated UA Leukoctes 0 Az/uL Last Edit by Crystal Oro on 08/06/24 12:08 UA Nitrite Negative Last Edit by Crystal Oro on 08/06/24 12:08 UA Urobilinogen 17 mg/dL Last Edit by Crystal Oro on 08/06/24 12:08 UA Protein 1 mg/dL Last Edit by Crystal Oro on 08/06/24 12:08 UA pH 6.0 Last Edit by Crystal Oro on 08/06/24 12:08 UA Blood 0 Hamzah/uL Last Edit by Crystal Oro on 08/06/24 12:08 UA Specific [place] 1.015 Last Edit by Crystal Oro on 08/06/24 12:08 UA Ketone Positive Last Edit by Crystal Oro on 08/06/24 12:08 UA Bilirubin 0 mg/dL Last Edit by Crystal Oro on 08/06/24 12:08 UA Glucose 0 mg/dL Last Edit by Crystal Oro on 08/06/24 12:08 Results Reviewed Results Reviewed: Laboratory Last Values Urine pH (Auto) 6.0 08/06/24 11:37 Specific [place] (Auto) 1.015 08/06/24 11:37 Urine Protein (Auto) 1 mg/dL 08/06/24 11:37 Glucose (UA)(Auto) 0 mg/dL 08/06/24 11:37 Urine Ketones (Auto) Positive 08/06/24 11:37 Urine Blood (Auto) 0 Hamzah/uL 08/06/24 11:37 Urine Nitrite (Auto) Negative 08/06/24 11:37 Urine Bilirubin (Auto) 0 mg/dL 08/06/24 11:37 Urine Urobilinogen (Auto) 17 mg/dL 08/06/24 11:37 Leukocyte Esterase (Auto) 0 Az/uL 08/06/24 11:37 Date of Service: 07/11/24 CLINICAL HISTORY: R31.0 - Gross hematuria CT abdomen and pelvis with and without contrast Comparison: None Findings: The lung bases are clear. Unremarkable gallbladder and solid organs. No urolithiasis. No bowel obstruction, pneumoperitoneum, or pneumatosis. The patient is status post hysterectomy. There is a 3.6 cm left lower quadrant cyst likely adnexal. The right ovary is not identified. The bones are intact. IMPRESSION: 1. Normal urinary tract. 2. 3.6 cm left lower quadrant cyst likely adnexal. It appears to be a benign thin-walled cyst however there may be a small septation. Please correlate with pelvic sonography. Assessment & Plan Assessment & Plan (1) Gross hematuria: Code(s): R31.0 - Gross hematuria Category: Medical (2) Abnormal cystoscopy: Code(s): R39.9 - Unspecified symptoms and signs involving the genitourinary system Category: Medical Plan I have discussed further management to include cystoscopy TURBT with left ureteroscopy and possible bilateral retrogrades Orders: Orders AMB Urinalysis Automated 08/06/24 Z13.9 - Encounter for screening, unspecified AMB Cystoscopy 08/06/24 R31.0 - Gross hematuria Patient Instructions: The patient had an opportunity to ask questions regarding treatment plan. The patient expressed understanding and agreement with the above treatment plan. The patient is aware they should contact our office by phone for worsening of their current condition or the appearance of new symptoms. Compliance is encouraged with any medications and followup testing that is ordered. It is a privilege to be allowed the opportunity to participate in the urologic care of your patient. If you have any questions or concerns regarding treatment for the above conditions please do not hesitate to contact me. The office telephone contact is [phone]. This note is constructed in part using voice recognition software. While every effort has been made to ensure accuracy head start director errors may have been included. Yours sincerely, Gabby Rayo MD Coding Level of Care Code Est Pt Level 4 (73743) Diagnoses Gross hematuria R31.0 Abnormal cystoscopy R39.9 CPT Codes Cystoscopy - CPT: 11448-[id number] ([id number])
--- OUTSIDE RECORDS SUMMARY | 2024-08-06 09:51 | XMS_ITS | Clinical Summary ---
Author Organization [facility] Address [address] [place] [address] Phone Care Team Providers Care Typing Bookkeeper Name Role Phone Maribel Sibley Primary Care Provider [phone] Allergies Active Allergy Reactions Criticality Noted Date [...] complication, without long-term current use of insulin ([facility] V24, [facility] V28) 05/24/2024 Vitamin D deficiency 05/24/2024 Encounters Date Type Department Care Team Description 06/18/2024 12:38 PM EDT - 06/18/2024 11:59 PM EDT Hospital Encounter [facility] Ultrasound [address] [place] [address] Adnexal cyst Discharge Disposition: Home or Self Care 06/12/2024 Telephone Obstetrics & Gynecology [facility] [address] [place] [phone] Debbie Aguilar CNM 05/24/2024 10:30 AM EST Office Visit Obstetrics & Gynecology [facility] [address] [place] [phone] Debbie Aguilar CNM Adnexal cyst (Primary Dx); [...] Medical History Date Comments Hypertension Diabetes mellitus ([facility] V24, [facility] V28) High cholesterol Social History Tobacco Use [...] Care Team (Late st Contact Info) Description 08/14/2024 3:40 PM EDT [facility] [place] [address] [place] [phone] Issa Slade MD [address] [place] [address] Health Maintenance Due Date Last Done Comments [...] Signed Date: 06/19/2024 10:54 ET Workstation ID: [id number] Transcribed By: Self Edit Transcribed Date: 06/19/2024 [...] Signed Date: 06/19/2024 10:54 ET Workstation ID: [id number] Transcribed By: Self Edit Transcribed Date: 06/19/2024 10:48 ET Debbie Aguilar CNM [facility] PROCEDURES Final Resul t * Trichomonas vaginalis antigen (05/24/2024 11:10 AM EST) Trichomonas vaginalis Negative Negative 05/24/2024 1:14 PM EST [facility]) [facility] Swab Vaginal structure / Unknown Non-blood Collection / Unknown 05/24/2024 11:10 AM EST 05/24/2024 12:09 PM EST Debbie Aguilar [facility] MICROBIOLOGY - GENERAL OR DERABLES Final Result Performing Organization Address [facility]/ZIP Co de Phone Number [facility] [address] [place] [address], [place] [phone] * Wet prep, genital (05/24/2024 11:10 AM EST) Pathologist [facility] Clue Cells, Wet Prep Negative Negative 05/24/2024 1:04 PM EST [facility] Yeast, Wet Prep Negative Negative 05/24/2024 1:04 PM EST [facility] Trichomonas, Wet Prep Indeterminate Negative 05/24/2024 1:04 PM EST [facility] Comment:Refer to Trichomonas antigen. Swab Vaginal structure / Unknown Non-blood Collection / Unknown 05/24/2024 11:10 AM EST 05/24/2024 12:09 PM EST Debbie Aguilar [facility] MICROBIOLOGY - GENERAL OR DERABLES Final Result Performing Organization Address [facility]/ZIP Co de Phone Number [facility] [address] [place] [address], [place] [phone] * (ABNORMAL) Comprehensive metabolic panel (02/25/2024 1:32 PM EST) Pathologist [facility] Sodium 137 133 - 145 mmol/L LAB CHEMISTRY METHOD 02/25/2024 2:20 PM EST [facility] Potassium 4.0 3.5 - 5.5 mmol/L LAB CHEMISTRY METHOD 02/25/2024 2:20 PM EST [facility] Comment:Hemolysis present Chloride 100 96 - 110 mmol/L LAB CHEMISTRY METHOD 02/25/2024 2:20 PM EST [facility] CO2 35(H) 21 - 32 mmol/L LAB CHEMISTRY METHOD 02/25/2024 2:20 PM [facility] Anion Gap 2(L) 3 - 11 LAB CHEMISTRY METHOD 02/25/2024 2:20 PM [facility] Glucose 176(H) 70 - 100 mg/dL LAB CHEMISTRY METHOD 02/25/2024 2:20 PM [facility] BUN 19 5 - 25 mg/dL LAB CHEMISTRY METHOD 02/25/2024 2:20 PM [facility] Creatinine 1.00 0.50 - 1.10 mg/dL LAB CHEMISTRY METHOD 02/25/2024 2:20 PM [facility] eGFR 62 >=60 mL/min/1. 73m2 LAB CHEMISTRY METHOD 02/25/2024 2:20 PM [facility] Comment:Calculation based on the??Chronic Kidney Disease Epidemiology Collaboration (CKD-EPI) equation refit??without adjustment for race. BUN/Creatinine Ratio 19.0 LAB CHEMISTRY METHOD 02/25/2024 2:20 PM [facility] Calcium 9.6 8.5 - 10.5 mg/dL LAB CHEMISTRY METHOD 02/25/2024 2:20 PM [facility] AST (SGOT) 20 10 - 42 unit/L LAB CHEMISTRY METHOD 02/25/2024 2:20 PM [facility] Comment:Hemolysis present ALT (SGPT) 21 10 - 60 unit/L LAB CHEMISTRY METHOD 02/25/2024 2:20 PM [facility] Alkaline Phosphatase 93 42 - 121 unit/L LAB CHEMISTRY METHOD 02/25/2024 2:20 PM [facility] Total Protein 7.7 6.0 - 8.0 g/dL LAB CHEMISTRY METHOD 02/25/2024 2:20 PM [facility] Albumin 3.9 3.2 - 5.0 g/dL LAB CHEMISTRY METHOD 02/25/2024 2:20 PM [facility] Total Bilirubin 0.7 0.0 - 1.4 mg/dL LAB CHEMISTRY METHOD 02/25/2024 2:20 PM EST [facility] Blood Venous blood specimen / Unknown Venipuncture / Unknown 02/25/2024 1:32 PM EST 02/25/2024 1:43 PM EST us Reddy Arroyo DO LAB BLOOD ORDERABLES Final Res ult [facility]) [facility] [address] [place] [address], [place] [phone] * Colonoscopy (01/20/2023) Colonoscopy NO INTERPRETATION , ABSTRACTED Anatomical Region Laterality Modality Other Historical Provider MD HEALTH MAINTENANCE Final Result from Last 3 Months or Most Recently Relevant to Health Maintenance Additional Health Concerns Infection Onset Date Last Indicated ESBL 01/23/2024 01/23/2024 Insurance [facility] Care Teams Typing Bookkeeper Relationship Specialty Start Date End Date Maribel Sibley [address] [place] [address] PCP - General 01/23/24
== END 2024-08-06 10:49 | disposition home or self-care (01) ==
LOC: HO.HUSH 09:32
PROVIDERS: PCP Family Medicine; Visit Provider Urology
DX: R31.0 Gross hematuria (principal); R39.9 Unspecified symptoms and signs involving the genitourinary system
CPT/HCPCS: 99214

== ENCOUNTER → 2024-08-06 09:31 | Outpatient (BNVA) | payer OTHER, SELFPAY | PROVIDERS: PCP Family Medicine; Visit Provider Urology | DX: R31.0 Gross hematuria (principal); R39.9 Unspecified symptoms and signs involving the genitourinary system; Z87.440 Personal history of urinary (tract) infections; Z79.899 Other long term (current) drug therapy | CPT/HCPCS: 52000; 81003; 99212 ==

== ENCOUNTER → 2024-11-09 09:11 | Outpatient (REF) | payer OTHER, SELFPAY ==
--- NOTE | 2024-11-09 09:18 | ECG_ITS ---
Test Reason : pre op Blood Pressure : */* mmHG Vent. Rate : 50 BPM Atrial Rate : 50 BPM P-R Int : 184 ms QRS Dur : 88 ms QT Int : 408 ms P-R-T Axes : 64 43 54 degrees QTcB Int : 371 ms Sinus bradycardia Otherwise normal ECG When compared with ECG of 02-May-2023 17:27, No significant change was found Referred By: Gabby Rayo Electronically Signed By: GRISELDA ANDERSEN MD
--- OUTSIDE RECORDS SUMMARY | 2024-11-09 09:21 | XMS_ITS | Clinical Summary ---
Author Organization [facility] Address [address] [place] [address] Phone Care Team Providers Care Brush Clearer Surveying Name Role Phone Maribel Sibley Primary Care Provider Allergies Active Allergy Reactions Criticality Noted Date [...] complication, without long-term current use of insulin ([facility] V24, [facility] V28) 05/24/2024 Vitamin D deficiency 05/24/2024 GERD (gastroesophageal reflux disease) Resolved Problems Problem Noted Date Diagnosed Date Resolved Date H/O: depression 05/24/2024 08/29/2024 H/O: hysterectomy 05/24/2024 08/29/2024 Overview (05/24/2024): 2017 for DUB Encounters Date Type Department Care Team Description 09/05/2024 8:55 AM EDT - 09/05/2024 11:59 PM EDT Hospital Encounter [facility] Interventional Radiology [address] [place] [address] Adnexal cyst; H/O: hysterectomy Discharge Disposition: Home or Self Care 08/21/2024 Telephone Breast Care [address] [phone] Shu Parker RN Appointment 08/14/2024 3:40 PM EDT Consult Breast [address] [phone] Issa Slade MD Adnexal cyst (Primary Dx); [...] complication, without long-term current use of insulin ([facility] V24, [facility] V28) 05/24/2024 Primary insomnia 05/24/2024 Major depressive [...] Signed Date: 09/06/2024 14:42 ET Workstation ID: [id number] Transcribed By: Self Edit Transcribed Date: 09/06/2024 [...] in stable condition without immediate complications. Scanner: [employer] [address] Dose reduction technique: AEC (automated exposure control) Dose: total exam DLP 876 mGY per cm FINDINGS: Initial axial images obtained again demonstrate 3.5 cm left pelvic cyst likely ovarian in origin. Images obtained after drainage demonstrate resolved left ovarian cyst. Procedure Note Blas, Parshant, MD - 09/06/2024 INDICATION: Left pelvic cyst [...] department in stablecondition without immediate complications. Scanner: [employer] [address] Dose reduction technique: AEC [...] Signed Date: 09/06/2024 14:42 ET Workstation ID: [id number] Transcribed By: Self Edit Transcribed Date: 09/06/2024 14:38 ET us Issa Slade MD IMG IR PROCEDURES Final Result * Non-gynecologic cytology (09/05/2024 12:23 PM EDT) Final Diagnosis Pelvis, adnexal cyst (ThinPrep, cell block): No malignant cells identified Serous ciliated epithelium without atypia and histiocytes, consistent with benign serous cystadenoma contents 09/06/2024 2:12 PM EDT [facility] Specimen A Adequacy Satisfactory for evaluation 09/06/2024 2:12 PM EDT [facility] Gross Description A. Pelvis, adnexal cyst: Received 15 ml yellow cloudy fluid 1 thin prep, 1 cell block Formalin fixation time 7 put cell block in formalin at 1400 09/06/2024 2:12 PM EDT [facility] Disclaimer Unless otherwise specified, all tissue is 10% NB formalin fixed and paraffin embedded. Technical cytopathology services provided by [facility], at [address] [place] [address] (CLIA # [id number]/Don Zavala MD, Electric Meter Reader.) 09/06/2024 2:12 PM EDT [facility] Aspirate Pelvic region / Unknown 09/05/2024 12:23 PM EDT 09/05/2024 1:38 PM EDT us Annalisa Odonnell MD LAB CYTOLOGY ORDERABLES Final R esult [facility] [address] [place] [address], * (ABNORMAL) Comprehensive metabolic panel (02/25/2024 1:32 PM EST) Sodium 137 133 - 145 mmol/L LAB CHEMISTRY METHOD 02/25/2024 2:20 PM EST [facility] Potassium 4.0 3.5 - 5.5 mmol/L LAB CHEMISTRY METHOD 02/25/2024 2:20 PM EST [facility] Comment:Hemolysis present Chloride 100 96 - 110 mmol/L LAB CHEMISTRY METHOD 02/25/2024 2:20 PM EST [facility] CO2 35(H) 21 - 32 mmol/L LAB CHEMISTRY METHOD 02/25/2024 2:20 PM EST [facility] Anion Gap 2(L) 3 - 11 LAB CHEMISTRY METHOD 02/25/2024 2:20 PM [facility] Glucose 176(H) 70 - 100 mg/dL LAB CHEMISTRY METHOD 02/25/2024 2:20 PM [facility] BUN 19 5 - 25 mg/dL LAB CHEMISTRY METHOD 02/25/2024 2:20 PM [facility] Creatinine 1.00 0.50 - 1.10 mg/dL LAB CHEMISTRY METHOD 02/25/2024 2:20 PM [facility] eGFR 62 >=60 mL/min/1. 73m2 LAB CHEMISTRY METHOD 02/25/2024 2:20 PM [facility] Comment:Calculation based on the Chronic Kidney Disease Epidemiology Collaboration (CKD-EPI) equation refit without adjustment for race. BUN/Creatinine Ratio 19.0 LAB CHEMISTRY METHOD 02/25/2024 2:20 PM [facility] Calcium 9.6 8.5 - 10.5 mg/dL LAB CHEMISTRY METHOD 02/25/2024 2:20 PM [facility] AST (SGOT) 20 10 - 42 unit/L LAB CHEMISTRY METHOD 02/25/2024 2:20 PM [facility] Comment:Hemolysis present ALT (SGPT) 21 10 - 60 unit/L LAB CHEMISTRY METHOD 02/25/2024 2:20 PM [facility] Alkaline Phosphatase 93 42 - 121 unit/L LAB CHEMISTRY METHOD 02/25/2024 2:20 PM [facility] Total Protein 7.7 6.0 - 8.0 g/dL LAB CHEMISTRY METHOD 02/25/2024 2:20 PM [facility] Albumin 3.9 3.2 - 5.0 g/dL LAB CHEMISTRY METHOD 02/25/2024 2:20 PM [facility] Total Bilirubin 0.7 0.0 - 1.4 mg/dL LAB CHEMISTRY METHOD 02/25/2024 2:20 PM [facility] Blood Venous blood specimen / Unknown Venipuncture / Unknown 02/25/2024 1:32 PM EST 02/25/2024 1:43 PM EST us Reddy Arroyo DO LAB BLOOD ORDERABLES Final Res ult [facility] [address] [place] [address], * Colonoscopy (01/20/2023) Colonoscopy NO INTERPRETATION , ABSTRACTED Anatomical Region Laterality Modality Other us Historical Provider MD HEALTH MAINTENANCE Final Result from Last 3 Months or Most Recently Relevant to Health Maintenance Additional Health Concerns Infection Onset Date Last Indicated ESBL 01/23/2024 01/23/2024 Insurance [facility] [employer] Care Teams Brush Clearer Surveying Relationship Specialty Start Date End Date Maribel Sibley [address] [place] [phone] PCP - General 01/23/24
[2024-11-09 09:53] LABS: Hematocrit 39.2 % (37.0-47.0); Hemoglobin 12.5 g/dl (12.0-16.0); Mean Corpuscular HGB Conc 31.9 g/dl (31.0-35.0); Mean Corpuscular Hemoglobin 26.0 pg (27.0-33.0); Mean Corpuscular Volume 81.5 fL (80.0-98.0); NRBC Abs Auto 0.000 X10*3/uL (0.0-0.012); NRBC Pct Auto 0.0 /100WBC (0.0-0.2); Platelet Count 302 X10*3/uL (160-400); Red Blood Count 4.81 X10*6/uL (4.20-5.50); White Blood Count 7.1 X10*3/uL (4.8-10.8)
[2024-11-09 10:39] LABS: Anion Gap 13 (12-20); Blood Urea Nitrogen 15 mg/dL (9-16); Calcium 10.0 mg/dL (8.4-10.2); Carbon Dioxide 25 mmol/L (22-29); Chloride 106 mmol/L (96-108); Estimated Glomerular Filt Rate > 60; Potassium 3.9 mmol/L (3.3-5.1); Sodium 140 mmol/L (135-145)
== END ==
LOC: HO.CARD 09:11
PROVIDERS: PCP Family Medicine; Visit Provider Urology
DX: Z01.818 Encounter for other preprocedural examination (principal)
CPT/HCPCS: 36415; 80048; 85027; 93005

== ENCOUNTER → 2024-11-09 09:18 | Outpatient (BNV) | payer OTHER, SELFPAY | PROVIDERS: PCP Family Medicine; Visit Provider Internal Medicine Cardiovascular Disease | DX: R00.1 Bradycardia, unspecified (principal) | CPT/HCPCS: 93010 ==

== ENCOUNTER 2024-11-27 06:05 | Day surgery (SDC) | payer OTHER, SELFPAY ==
--- OUTSIDE RECORDS SUMMARY | 2024-01-12 06:00 | XMS_ITS | Encounter Summary ---
Author Name [facility] [place] Address [address] [place] [address] Care Team Providers Care Train Caller Name Role Phone GO PALUMBO Primary Care Provider Unavailabl e Insurance Providers: All historical and current Section Date Range: From patient's date of to the date document was created. This section includes the names of all active insurance providers for the patient. Insurance Provider Type of Coverage Plan Name Start of Policy Coverage End of Policy Coverage Group Number Member ID Insurance Provider's Telephone Number Policy Tadeo's Name Patient's Relationship to Policy Tadeo [facility] PREFERRED PROVIDER ORGANIZAT ION (PPO) FED EMPLO DOMINIQUE Mar 21, 1998 [id number] KRISTINA LORA PATIENT [employer] MCR (WNR) MEDICARE ADVANTAGE HUMAN A INSUR ANCE COM Feb 18, 2022 [id number] KRISTINA LORA PATIENT INDEPENDEN CE PREFERRED PROVIDER ORGANIZAT ION (PPO) FED EMPLO FOX Apr 17, 1989 [id number] KRISTINA LORA PATIENT Selected Encounter This section includes the information on record at [place] for the Encounter. Date/Time Encounter Type Encounter Description Reason Provider Source Jan 12, 2024 10:00 AM OFFICE O/P EST MOD 30 MIN PRIMARY CARE/MEDICINE ICD-10-CM R30.0 Dysuria LINWOODGO BAUER E Encounter Template Text not used by [place] Assessments - Encounter Diagnoses This section includes the primary and secondary diagnoses documented for the Encounter. Date/Time Primary/Secondary Diagnosis Diagnosis Name Provider Source July 23, 2024 02:04 PM PRIMARY Dysuria GO PALUMBO [facility] [place] [facility] July 23, 2024 02:04 PM SECONDARY Essential (primary) hypertension GO PALUMBO [facility] [place] [facility] Plan of Treatment: Future Appointments (+ 6 months) and Future Tests (+/- 45 days) The Plan of Treatment section includes [facility] care [facility] the [facility] [place] [facility] This section includes future appointments and future orders which are active, pending or scheduled. Future Appointments This section includes appointments that were scheduled to occur 6 months from the date of the Encounter, up to a maximum of 20 appointments. The data comes from all [place] treatment facilities. Appointment Date/Time Appointment Type Appointme nt Facility Name Jan 16, 2024 02:30 PM [facility]UL[facility]ICINE [facility] [place] [facility] Jan 27, 2024 10:00 AM [facility]ULAT[facility] [place] [facility] May 10, 2024 11:00 AM AMBULATORY [facility] MEDICINE [facility] [place] [facility] May 14, 2024 10:00 AM AMBULATORY [facility] MEDICINE [facility] [place] [facility] May 21, 2024 01:30 PM AM[facility]ULATORY [facility] MEDICINE [facility] [place] [facility] May 24, 2024 10:30 AM [facility]ULATORY [facility] MEDICINE [facility] [place] [facility] May 30, 2024 02:00 PM AMBULATORY - MEDICINE [facility] [place] [facility] Jun 14, 2024 08:30 AM AMBULATORY - NONE [facility] [place] [facility] Jun 14, 2024 09:00 AM AMBULATORY - NONE [facility] [place] [facility] Jun 14, 2024 09:30 AM [facility]UL[facility] MEDICINE [facility] [place] [facility] Jun 20, 2024 02:00 PM AMBULATORY - MEDICINE [facility] [place] [facility] Lab Results: +/- 30 days of the encounter This section includes the Chemistry and Hematology Lab Results on record with [place] for the patient. Radiology Reports and Pathology Reports are provided separately, in subsequent sections. Lab Results This section contains the Chemistry/Hematology Results that were resulted 30 days before or 30 daysafter the date of the Encounter. Date/Time Source Result Type Result - Unit Interpretation Reference Range Specimen Type Comment Jan 16, 2024 03:05 PM [facility] XPERT XPRESS MVP VAGINA Specimen Type: VAGINA No comment entered. Ordering Provider: GO PALUMBO Report Released Date/Time: Jan 16, 2024 03:11 PM Reporting Lab: [address] [address] Performing Lab: [address] [address] .BACTERIAL VAGINOSIS MVP NEGATIVE Negati ve .SERA GROUP NOT DETECTED Not Detected .SERA GLABRATA-KRUSEI MVP NOT DETECTED Not Detected .TRICHOMONAS VAGINALIS MVP NOT DETECTED Not Detected Jan 12, 2024 12:24 PM [facility] HEMOGLOBIN A1C PANEL BLOOD Specimen Type: BLO OD Comment: Values obtained from A1C measurements can vary. For atypical A1C assays, a reported value of 7.0 could actually be between 6.72 and 7.28 if measured by a reference method. A reported value of 9.0 could actually be between 8.73 and 9.27. Ref: http://www.ngsp.org/CAPdata.asp Ordering Provider: GO PALUMBO Report Released Date/Time: Jan 12, 2024 10:25 AM Reporting Lab: [address] [address] Performing Lab: [address] [address] HEMOGLOBIN A1C 6.6 H 4.0-5.6 Jan 12, 2024 12:24 PM [facility] MICROSCOPIC AUTOMATED, URINE URINE Specimen T ype: URINE Comment: If Glucose = >500 and Ketones are positive, please alert the Physician. Ordering Provider: GO PALUMBO Report Released Date/Time: Jan 12, 2024 10:25 AM Reporting Lab: [address] [address] Performing Lab: [address] [address] UA WBC TNTC /[HPF] 0-5 UA BACTERIA 1+ /[HPF] NoneObs UA RBC 21-50 /[HPF] H 0-3 UA SQUAMOUS EPITH FEW /[HPF] Jan 12, 2024 12:24 PM [facility] URINALYSIS CLEAN CATCH URINE Specimen Type: U RINE Comment: If Glucose = >500 and Ketones are positive, please alert the Physician. Ordering Provider: GO PALUMBO Report Released Date/Time: Jan 12, 2024 10:25 AM Reporting Lab: [address] [address] Performing Lab: [address] [address] UA COLOR Light-Yellow Yellow UA APPEARANCE Turbid Clear UA GLUCOSE Normal mg/dL Negative UA KETONES NEGATIVE mg/dL Negative UA BLOOD LARGE mg/dL Negative UA PROTEIN 20 mg/dL Negative UA NITRITE NEGATIVE mg/dL Negative UA BILIRUBIN NEGATIVE mg/dL Negative UA SPECIFIC GRAVITY 1.015 L 1.016-1.022 UA pH 5.5 5.0-9.0 UA UROBILINOGEN Normal mg/dL <2.0 UA LEUKOCYTE LARGE Negative Vital Signs: All taken on the encounter date This section contains inpatient and outpatient Vital Signs collected on the date of the Encounter. Date/Time Temperature Pulse Blood Pressure Respiratory Rate SP02 Pain Height Weight Body Mass Index Source Jan 12, 2024 10:09 AM 97.2 57 151/81 14 98 2 202.2 38 [facility] Social History: Smoking Status (Most current) and Tobacco Use (All prior to encounter date) This section includes the most current, and the historical, smoking and tobacco- related health factors from the [place] facility where the Encounter took place. Current Smoking Status This section includes the most current smoking, or tobacco-related health factor, from the [place] facility where the Encounter took place. Date/Time Current Smoking Status Comment Facil ity Mar 18, 2023 08:30 AM VA-TOBACCO FORMER USER [place] [facility] [place] [facility] Tobacco Use History This section includes a history of the smoking, or tobacco-related health factors, that were collected on or before the date of the Encounter. The data comes from the [place] facility where the Encounter took place. Date/Time Smoking Status/Tobacco Use Comment F acility Mar 18, 2023 08:30 AM VA-TOBACCO QUIT 15 YRS OR MORE [facility] [place] [facility] Feb 24, 2022 11:00 AM VA-TOBACCO FORMER USER [facility] [place] [facility] Feb 24, 2022 11:00 AM VA-TOBACCO QUIT 15 YRS OR MORE [facility] [place] [facility] Mar 25, 2021 10:00 AM VA-TOBACCO FORMER USER [facility] [place] [facility] Mar 25, 2021 10:00 AM VA-TOBACCO QUIT 15 YRS OR MORE [facility] [place] [facility] Apr 11, 2020 09:15 AM VA-TOBACCO FORMER USER [facility] [place] [facility] Apr 11, 2020 09:15 AM VA-TOBACCO QUIT 15 YRS OR MORE [facility] [place] [facility] Nov 10, 2018 02:16 PM VA-TOBACCO FORMER USER [facility] [place] [facility] Nov 10, 2018 02:16 PM VA-TOBACCO QUIT 15 YRS OR MORE [facility] [place] [facility] Sep 12, 2017 09:53 AM VA-TOBACCO FORMER USER [facility] [place] [facility] Sep 12, 2017 09:53 AM VA-TOBACCO QUIT 5 TO < 15 YRS [facility] [place] [facility] Mar 04, 2017 09:01 AM QUIT TOBACCO USE > 7 YEARS AGO [facility] [place] [facility] Advance Directives: All historical and current Section Date Range: From patient's date of to the date document was created. This section includes ALL of a patient's completed or amended [place] Advance and Rescinded Directives. The entries below indicate that a directive exists for the patient, but an actual copy is not included with this document. The data comes from all [place] facilities. Date Advance Directives Provider Source Apr 15, 2016 AD[facility] Apr 15, 2016 ADVANCE DIRECTIVE DISCUSSION MIGUE LICEA [facility] Pathology Reports: +/- 30 days of the encounter Pathology Reports For cases when an order for pathology services may have been completed prior to the date of the Encounter, the report list includes the Pathology Reports that were completed up to 30 days before dateof the Encounter. For cases when an order for pathology services may have been completed after the date of the Encounter, the report list also includes the Pathology Reports that were completed up to30 days after date of the Encounter. The data comes from all [place] treatment facilities. Date/Time Pathology Report Provider Source Jan 12, 2024 12:24 PM LR MICROBIOLOGY REPORT: Reporting [facility]: [facility]CLIA# [id number]] [address] [place] [id number] Accession [UID]: [id number] [[id number]] Received: Jan 12, 2024@12:24 Collection sample: URINE CLEAN CATCH Collection date: Jan 12, 2024 12:24 Site/Specimen: URINE Provider: GO PALUMBO Comment on specimen: POSITIVE CULTURE RESULTS MAY NOT REPRESENT CLINICAL INFECTION. CONSIDER NEED FOR ANTIBIOTICS IN THE CONTEXT OF UTI SYMPTOMS. Test(s) ordered: URINE CULTURE(MWROX).......... completed: Jan 16, 2024 10:40 * BACTERIOLOGY FINAL REPORT => Jan 16, 2024 10:40 TECH CODE: [id number] CULTURE RESULTS: ESCHERICHIA COLI - Quantity: >100,000 CFU/ml Comment: Multi-Drug Resistant Organism ANTIBIOTIC SUSCEPTIBILITY TEST RESULTS: ESCHERICHIA COLI : SUSC INTP AMIKACIN................. ..... S S CEFEPIME................. ..... >16 R ERTAPENEM................ ..... <0.5 S MEROPENEM................ ..... <1 S PIPERACILLIN/TAZO........ ..... <8 S AMPICILLIN............... ..... >16 R CEFAZOLIN................ ..... >16 R CEFTAZIDIME.............. ..... 8 I CEFTRIAXONE.............. ..... >32 R GENTAMICIN............... ..... <2 S TOBRAMYCIN............... ..... <2 S TRIM/SULF................ ..... 1/19 S IMIPENEM................. ..... <1 S CIPROFLOXACIN............ ..... <0.25 S NITROFURANTOIN........... ..... <32 S CEFOXITIN................ ..... <8 S CEFUROXIME............... ..... >16 R AZTREONAM................ ..... 16 R LEVOFLOXACIN............. ..... <0.5 S Bacteriology Remark(s): >25,000 - <50,000 CFU/ML MIXED GRAM POSITIVE DONNA No further workup =--=--=--=--=--=--=--=--= --=--=--=--=--=--=--=--=- -=--=--=--=--=--=--=--=-- =-- Performing Laboratory: Escherichia Coli Performed By: [facility] [CLIA# [id number]] [address] [place] [address] Bact Report Remark #1 Performed By: [facility] [CLIA# [id number]] [address] [place] [address] Bact Report Remark #2 Performed By: [facility] [CLIA# [id number]] [address] [place] [address] [facility] C[facility] [place] [facility] [place] [facility] Encounter Notes: All associated encounter notes This section contains the clinical notes associated to the Encounter. Date/Time Encounter Note(s) Provider Source Jan 12, 2024 11:09 AM PRIMARY CARE NURSE PRACTITIONER OUTPATIENT NOTE: LOCAL TITLE: NURSE PRACTITIONER OUTPATIENT NOTE STANDARD TITLE: PRIMARY CARE NURSE PRACTITIONER OUTPATIENT NOTE DATE OF NOTE: JAN 12, 2024@11:09 ENTRY DATE: JAN 12, 2024@11:09:47 AUTHOR: MARISOL KURTZ COSIGNER: GO PALUMBO URGENCY: STATUS: COMPLETED Wallace is here for Urgent/Sick visit HPI: Patient presents today with a three day history of urinary tract symptoms. She first noticed small amounts of blood on toilet tissue approximately 01/08 without other associated symptoms after urinating. Yesterday 01/10 she describes having new burning, pain, urgency,and right lower quadrant/pelvic discomfort with continued small amounts of blood on toilet tissue. She reported chills yesterday however has not measured a fever. No gross hematuria that she has noticed in urine, no strands of blood, no unusual discharge. She also reports some vaginal irritation. She has not had a urinary tract infection within three months, no recent antibiotics. Past Medical History: Active problems - Computerized Problem List is the source for the followin. Osteopenia 2. Postmenopausal 3. Restless leg syndrome due to iron deficiency anemia 4. Primary insomnia Insomnia Disorder, Severe 5. Major depressive disorder 6. Obstructive sleep apnea of adult 7. Obesity 8. Type 2 diabetes mellitus without complication 9. Hypertension 10. Hyperlipidemia 11. Allergic rhinitis 12. Tubular adenoma of colon tubular adenoma x1 04/21/07 colonoscopy 10/13/16 normal 13. Vitamin D deficiency 14. H/O: hysterectomy 05/2016 for DUB 15. H/O: depression Allergies: CODEINE, LISINOPRIL Current Medications: Active Outpatient Medications (including Supplies): ATENOLOL 50MG TAB TAKE ONE TABLET BY MOUTH ONCE DAILY FOR ACTIVE (S) BLOOD PRESSURE/HEART INCREASED DOSE CALCIUM 500MG/VITAMIN D 200 UNT TAB TAKE 2 TABLETS BY ACTIVE (S) MOUTH ONCE DAILY CARBOXYMETHYLCELLULOSE NA 0.5% OPH SOLN INSTILL 1 DROP ACTIVE (S) INTO EACH EYE FOUR TIMES A DAY FOR DRY EYE FERROUS SULFATE 325MG TAB TAKE ONE TABLET BY MOUTH ONCE ACTIVE (S) DAILY FOR RESTLESS LEGS HYDROCHLOROTHIAZIDE 50MG TAB TAKE ONE TABLET BY MOUTH ONCE ACTIVE (S) DAILY KETOCONAZOLE 2% CREAM APPLY A SMALL AMOUNT TOPICALLY EVERY ACTIVE (S) OTHER DAY FOR FUNGAL INFECTION OF SKIN USE ON DAYS YOU ARE NOT USING NYSTATIN CREAM LOSARTAN 100MG TAB TAKE ONE TABLET BY MOUTH ONCE DAILY FOR ACTIVE (S) BLOOD PRESSURE/HEART DECREASED DOSE LUBRICATING JELLY,TOP (K-Y) APPLY SUFFICIENT AMOUNT ACTIVE (S) TOPICALLY ONCE DAILY NEEDED FOR LUBRICATION METFORMIN HCL 500MG 24HR SA TAB TAKE ONE TABLET BY MOUTH ACTIVE (S) ONCE DAILY FOR TYPE 2 DIABETES MELLITUS DECREASE IN DOSE NITROFURANTOIN MONO/MACRO 100MG SA CAP TAKE ONE CAPSULE BY ACTIVE MOUTH TWICE DAILY NYSTATIN [id number] UNT/GM CREAM APPLY A SMALL AMOUNT ACTIVE (S) TOPICALLY EVERY OTHER DAY USE ON DAYS YOU ARE NOT USING KETOCONAZOLE CREAM SIMVASTATIN 40MG TAB TAKE ONE-HALF TABLET BY MOUTH ONCE ACTIVE (S) DAILY FOR CHOLESTEROL SUNSCREEN 30-50/AVOBENZONE/PABA-F SPRAY 1 SPRAY TOPICALLY ACTIVE (S) TWICE DAILY NEEDED PREVENT SUNBURN SUNSCREEN 30-50/PHY BLOCK/PABA-F FACE CR APPLY A LIBERAL ACTIVE (S) AMOUNT TOPICALLY TWICE DAILY NEEDED TO PREVENT SUNBURN Non-VA GUAIFENESIN 200MG TAB 200MG BY MOUTH EVERY 6 HOURS ACTIVE NEEDED -ROS- General: endorses chills, no fever, no unexplained weight loss or gain HEENT: denies vision changes, OP pain CV: denies CP, SOB, palpitations Lung: denies JORGE, cough, wheezing Abd: denies constipation, diarrhea, reflux, abdominal pain : dysuria, pyuria, frequency, lower abdominal pain, blood when wiping Ext: denies edema, weakness, falls Skin: denies rash or other lesions Psych: denies depression, SI Neuro: denies weakness, dizziness, falls, FOX -Vitals- 97.2 F [36.2 C] (01/12/2024 10:09) 57 (01/12/2024 10:09) 14 (01/12/2024 10:09) 151/81 (01/12/2024 10:09) 2 (01/12/2024 10:09) 61 in [154.9 cm] (03/18/2023 08:45) 202.2 lb [91.72 kg] (01/12/2024 10:09) BMI: 38.3 -Physical Exam- General: NAD Head: Normocephalic, atraumatic CV: S1S2, rrr, no m/r/g Lung: CTA Bilaterally, no wheeze, rhonchi, or crackles, no audible cough no CVAT Ext: no edema, warm and well perfused b/l Skin: no lesions or rashes Psych: A&O x3, appropriate mood and affect ASSESSMENT/PLAN: 1) urinary tract infection/uncomplicated cystitis- Patient presents today with symptoms consistent with urinary tract infection. Reasssuring physical exam findings without fever or CVA tenderness, making pyelonephritis less likely. She is agreeable to urinalysis today with culture to isolate causative pathogen. Will begin empiric treatment with nitrofurantoin 100 mg twice per day for 5 days. Consider altering antibiotic therapy if culture results identify specific causative pathogen with sensitivity to other antimicrobial agent. Plan to follow up with abnormal urinalysis or culture results. Will call if ok to dc meds or change Abx Patient to follow up if not feeling better or with worsening symptoms. 2) hypertension- Patient presents today with elevated blood pressure and continues losartan, atenolol, and hydrochlorothiazide as previously prescribed. Discussed with patient implications of termite helper hypertension for brain, cardiovascular, and kidney health. Patient was agreeable to increasing hydrochlorothiazide to 50 mg daily. Follow up in 2 months at PCP wellness visit. Supportive home care, fluids, rest Encouraged frequent hand washing and covering mouth with coughing Course, prognosis, return precautions discussed Questions answered gave permission to allow a student present for this exam/Encounter. I was present for the MARKETING OFFICER student's history taking and examination. I independently performed (or re-performed) the history taking, physical examination, and medical decision making as indicated The above plan and education was reviewed with the Wallace and they verbalized understanding. Return to clinic to see me in 2 months, RTC sooner if needed. -Clinical Reminders- Medication Reconciliation: Outpatient: Has the patient been taking medications as documented in the EMLR? YES: The patient has been taking medications as documented in the EMLR. Essential Medication List for Review used to complete this medication reconciliation. INCLUDED IN THIS LIST: Alphabetical list of active outpatient prescriptions dispensed from this [place] (local) and dispensed from another [place] or [facility] facility (remote) as well as inpatient orders (local, pending and active), local clinic medications, locally documented non-VA medications, and local prescriptions that have or been discontinued in the past 90 days. - All changes in medications, including all non-VA/Herbal/OTC medications were entered into CPRS. - If there were any medications the patient should no longer take, they were discontinued. - The patient/caregiver was instructed to update this list, discard old lists, and take this list to the next appointment, whether with a VA or non-VA provider. /dominick/ SYBIL RENO Nurse Practitioner Signed: 01/12/2024 13:39 for MARISOL KURTZ RN NURSE PRACTITIONER STUDENT /SYBIL Escobar Nurse Practitioner Cosigned: 01/12/2024 13:39 GO [place]UM[place] [facility] [place] [facility] Jan 12, 2024 10:04 AM PREVENTIVE MEDICINE NURSING NOTE: LOCAL TITLE: CLINICAL REMINDERS/NURSING STANDARD TITLE: PREVENTIVE MEDICINE NURSING NOTE DATE OF NOTE: JAN 12, 2024@10:04 ENTRY DATE: JAN 12, 2024@10:04:43 AUTHOR: IVORY MELENDEZ COSIGNER: URGENCY: STATUS: COMPLETED Advance Directive Screen AD: Patient does not have a completed advance directive on file at any facility, [facility] or outside. S/he is not interested in completing one at this time. The patient received education about Advance Directives and written notification of his/her rights. PAVE Foot Check: A complete foot check was completed at this encounter. VISUAL INSPECTION: Includes inspection for skin breaks, deformity, erythema, trauma, pallor on elevation, dependent rubor, nail deformities, extensive callus and pitting edema. Visual exam results: Normal PEDAL PULSES: Includes palpation of dorsalis and posterior tibial pulses and signs/symptoms of vascular compromise like pain, pallor, parasthesia or paralysis. Present (even if diminished) SENSORY CHECK: Includes 10 gram Monofilament ([place]) test of sensation. Intact (Greater than or equal to 80% of sites checked) Abnormal (Less than 80% of sites checked): Intact LOW-RISK: LOW RISK INFORMATION PROVIDED: 1. Advised patient not to walk barefoot. 2. Explained the importance of daily foot checks for changes. 3. Stressed the importance of daily foot hygiene, including bathing and complete drying. The patient verbalized understanding and was offered a detailed handout on diabetic foot care. RHS Screen: RHS Screen Session Format: Face to Face Environmental Check Upon inquiry, the individual reports that the environment is safe to proceed. Informed Consent to Screen and Document The individual consents to proceed with screening. The individual consents to documentation of responses. PRIMARY SCREEN: In the past 12 months, how often did a current or former intimate partner (e.g., boyfriend, girlfriend, , , sexual partner): 1. Scream or curse at you Never 2. Insult or talk down to you Never 3. Threaten you with harm Never 4. Physically hurt you Never 5. Force or pressure you to have sexual contact against your will, or when you were unable to say no Never The HITS tool (items 1-4 above) is [place] copyright protected by eRddy Hayes MD, and the user has full rights to use it throughout the [place] system. PRIMARY SCREEN RESULT: The Primary Screen is NEGATIVE. The individual answered never to all forms of IPV above (i.e., answered never to all 5 items) The individual accepts education and/or resources: No EDUCATION: The individual indicated readiness to learn. Education offered during this session as noted above. The individual indicated understanding by asking relevant questions and making appropriate comments. No barriers to learning were observed or identified. /dominick/ IVORY MELENDEZ, MSN, RN, CNL PRIMARY CARE TEAM NURSE Signed: 01/12/2024 10:09 IVORY MELENDEZ [facility]
--- OUTSIDE RECORDS SUMMARY | 2024-10-19 12:21 | XMS_ITS | Clinical Summary ---
Author Organization [facility] Address [address] [place] [address] Phone Care Team Providers Care Director [employer] Name Role Phone Maribel Sibley Primary Care Provider [phone] Allergies Active Allergy Reactions Criticality Noted Date Comments Codeine Chills 01/23/2024 Lisinopril Cough 01/23/2024 Sulfur 05/24/2024 Medications atenoloL (TENORMIN) 50 mg tablet Take 50 mg by mouth daily. Active calcium carbonate-vitami n D 500 mg-5 mcg (200 unit) per tablet Take 1 Tablet by mouth 2 times daily (with meals). Active carboxymethylcel lulose (REFRESH PLUS) 0.5 % ophthalmic solution 1 Drop 3 times daily as needed. Active cetirizine (ZyrTEC) 10 mg tablet Take 10 mg by mouth daily. Active guaiFENesin 200 mg tablet Take 400 mg by mouth every 4 hours as needed. Active hydroCHLOROthiaz gui (HYDRODIURIL) 25 mg tablet Take 25 mg by mouth daily. Active losartan (COZAAR) 100 mg tablet Take 100 mg by mouth daily. Active simvastatin (ZOCOR) 40 mg tablet Take 1 tablet (40 mg total) by mouth at bedtime. Active methocarbamoL (ROBAXIN) 750 mg tablet Take 1 tablet (750 mg total) by mouth 4 (four) times a day for 7 days. 28 each 4 Active nystatin (MYCOSTATIN) 100,000 unit/gram powderIndication s:Intertriginous candidiasis Apply topically 2 (two) times a day. 15 g 5 08/15/19 26 Active Active Problems Problem Noted Date Diagnosed Date Hypertension 05/24/2024 Benign neoplasm of colon 05/24/2024 Overview (08/29/2024): 01/21/2023: Tubular adenoma of colon x 2 04/21/2007: Tubular adenoma of colon x 1 Disorder of bone density and structure, unspecif ied 05/24/2024 Elevated cholesterol 05/24/2024 Major depressive disorder 05/24/2024 HOSEA (obstructive sleep apnea) 05/24/2024 Class 2 obesity with body ma ss index (BMI) of 38.0 to 38.9 in adult 05/24/2024 Primary insomnia 05/24/2024 Restless leg syndrome 05/24/2024 Type 2 diabetes mellitus wit hout complication, without long-term current use of insulin ([facility] V24, [facility] V28) 05/24/2024 Vitamin D deficiency 05/24/2024 GERD (gastroesophageal reflux disease) Resolved Problems Problem Noted Date Diagnosed Date Resolved Date H/O: depression 05/24/2024 08/29/2024 H/O: hysterectomy 05/24/2024 08/29/2024 Overview (05/24/2024): 2017 for DUB Encounters Date Type Department Care Team Description 09/05/2024 8:55 AM EDT - 09/05/2024 11:59 PM EDT Hospital Encounter [facility] Interventional Radiology [address] [place] [address] Adnexal cyst; H/O: hysterectomy Discharge Disposition: Home or Self Care 08/21/2024 Telephone Breast Care [address] [phone] Shu Parker RN Appointment 08/14/2024 3:40 PM EDT Consult Breast Care [address] [phone] Issa Slade MD Adnexal cyst (Primary Dx); H/O total hysterectomy with bilateral salpingo-oophorectom y (BSO); Chronic left-sided low back pain with left-sided sciatica; Intertriginous candidiasis from Last 3 Months Immunizations Name Administration [...] Surgical History Surgery Date Site/Laterality Comments SECTION 03/21/1988 - 03/20/1989 TOTAL ABDOMINAL HYSTERECTOMY W/ BILATERAL SALPINGOOPHORECTOMY 03/21/2015 - 03/20/2016 TONSILLECTOMY 03/21/1976 - 03/20/1977 SECTION 03/21/1995 - 03/20/1996 Medical History Medical History Date Comments Hypertension GERD (gastroesophageal reflux disease) HOSEA (obstructive sleep apnea) 05/24/2024 Benign neoplasm of colon 05/24/2024 01/22/20 23: Tubular adenoma of colon x 2 04/21/2007: Tubular adenoma of colon x 1 Class 2 obesity with body ma ss index (BMI) of 38.0 to 38.9 in adult 05/24/2024 Vitamin D deficiency 05/24/2024 Disorder of bone density and structure, unspecified 05/24/2024 Restless leg syndrome 05/24/2024 Type 2 diabetes mellitus wit hout complication, without long-term current use of insulin ([facility] V24, [facility] V28) 05/24/2024 Primary insomnia 05/24/2024 Major depressive disorder 05/24/2024 H/O: hysterectomy 05/24/2024 2017 for DUB Hypertension 05/24/2024 Elevated cholesterol 05/24/2024 Family History Medical History Relation Name Comments Throat cancer Maternal Grandfather Ovarian cancer Maternal Grandmother Clotting disorder Mother Breast cancer Mother's Sister Relation Name Status Comments Maternal Grandfather Maternal Grandmother Mother Mother's Sister Social History Tobacco Use Types Packs/Day Years [...] Sign Reading Time Taken Comments Blood Pressure 139/81 09/05/2024 1:31 PM EDT Pulse 48 09/05/2024 1:31 PM EDT Temperature 36.3 C (97.3 F) 09/05/2024 9:16 AM EDT Respiratory Rate 18 09/05/2024 9:16 AM EDT Oxygen Saturation 97% 09/05/2024 1:31 PM EDT Inhaled Oxygen Concentration - - Weight 90.7 kg (200 lb) 09/05/2024 9:16 AM EDT Height 152.4 cm (5') 09/05/2024 9:16 AM EDT Body Mass Index 39.06 09/05/2024 9:16 AM EDT Plan of Treatment Health Maintenance Due Date Last Done Comments Breast Cancer Screening 1957 Diabetes: Annual Foot Exam 1967 Diabetes: Annual Retina Eye Exam 1967 Zoster Vaccines (1 of 2) 2007 Pneumococcal Vaccine: 50+ Years (2 of 2 - PCV) 03/04/2018 03/04/2017 Cholesterol Screening (Lipid Panel) 06/13/2022 Falls Risk Assessment 06/13/2022 Hepatitis C Screening 06/13/2022 Osteoporosis Screening (Bone Density Screening) 06/13/2022 Social Influencers of Health Screening 06/13/2022 COVID-19 Vaccine ( season) 2023 03/25/2021, 06/11/2020, 05/14/2020 Depression Screening 03/21/2024 Diabetes: Annual Urine Albumin-Creatinine Ratio (uACR) 05/24/2024 Diabetes: Blood Sugar Control Test (HGBA1C) 05/24/2024 Influenza Vaccine (#1) 2024 , 01/15/2020, 02/02/2019, Additional history exists Diabetes: Annual GFR (Glomerular Filtration Rate) 02/24/2025 02/25/2024, 01/23/2024 Hypertension/CHF/CAD Annual BMP Blood Test 02/24/2025 02/25/2024, 01/23/2024 DTaP,Tdap,and Td Vaccines (2 - Td or Tdap) 03/04/2027 03/04/2017 Colorectal Cancer Screening: Colonoscopy 01/21/2028 01/20/2023 RSV Immunization Adult Patients (1 - 1-dose 75+ series) 01/14/2032 HIB [...] Procedure Name Priority Date/Time Associated Diagnosis Comments IR DRAIN FLUID CATH PERIT/RETRO PERC Routine 09/05/2024 12:37 PM EDT Adnexal cyst H/O: hysterectomy NON-GYNECOLOGIC CYTOLOGY Routine 09/05/2024 12:23 PM EDT Adnexal cyst H/O: hysterectomy COMPREHENSIVE METABOLIC PANEL STAT 02/25/2024 1:32 PM EST HM COLONOSCOPY Routine 01/20/2023 from Last 3 Months or Most Recently Relevant to Health Maintenance Results * IR Drain Fluid Cath Perit/Retro Perc (09/05/2024 12:37 PM EDT) Anatomical Region Laterality Modality N/A Interventional R adiology 09/06/2024 2:38 PM EDT Impressions 09/06/2024 2:[address]-guided catheter drainage of left ovarian cyst. -------- FINAL REPORT -------- Dictated By: Annalisa Odonnell Dictated Date: 09/06/2024 14:38 ET Assigned Physician: Annalisa Odonnell Reviewed and Electronically Signed By: Annalisa Odonnell Signed Date: 09/06/2024 14:42 ET Workstation ID: [id number] Transcribed By: Self Edit Transcribed Date: 09/06/2024 14:38 ET Narrative 09/06/2024 2:42 PM EDT INDICATION: Left pelvic cyst TECHNIQUE: Written informed consent obtained. Patient placed supine on the CAT scan table and axial images obtained for localization of left ovarian cyst. The appropriate area of the skin was localized, marked, draped and prepped in the usual sterile fashion. 2% buffered lidocaine used as a local anesthetic. Moderate intravenous sedation initiated and maintained for approximately 47 minutes while the patient was independently monitored by the radiology nurse under the supervision of the interventional radiologist. Under CT fluoroscopic guidance a one-step catheter was advanced towards this cyst. Once the cyst was punctured needle was removed and drainage performed through the indwelling catheter with 15 mL of serous fluid aspirated. Samples sent for microbiological evaluation. Post drainage CT images demonstrate resolved cyst therefore the catheter was removed. The patient tolerated the procedure well and left the department in stable condition without immediate complications. Scanner: [employer] [address] Dose reduction technique: AEC (automated exposure control) Dose: total exam DLP 876 mGY per cm FINDINGS: Initial axial images obtained again demonstrate 3.5 cm left pelvic cyst likely ovarian in origin. Images obtained after drainage demonstrate resolved left ovarian cyst. Procedure Note Annalisa Odonnell MD - 09/06/2024 INDICATION: Left pelvic cyst TECHNIQUE: Written informed consent obtained. Patient placed supine on theCAT scan table and axial images obtained for localization of left ovariancyst. The appropriate area of the skin was localized, marked, draped andprepped in the usual sterile fashion. 2% buffered lidocaine used as alocal anesthetic. Moderate intravenous sedation initiated and maintainedfor approximately 47 minutes while the patient was independently monitoredby the radiology nurse under the supervision of the interventionalradiologist. Under CT fluoroscopic guidance a one-step catheter was advanced towardsthis cyst. Once the cyst was punctured needle was removed and drainageperformed through the indwelling catheter with 15 mL of serous fluidaspirated. Samples sent for microbiological evaluation. Post drainage CTimages demonstrate resolved cyst therefore the catheter was removed. Thepatient tolerated the procedure well and left the department in stablecondition without immediate complications. Scanner: [employer] [address] Dose reduction technique: AEC (automated exposure control) Dose: total exam DLP 876 mGY per cm FINDINGS: Initial axial images obtained again demonstrate 3.5 cm leftpelvic cyst likely ovarian in origin. Images obtained after drainage demonstrate resolved left ovarian cyst. IMPRESSION: CT-guided catheter drainage of left ovarian cyst. -------- FINAL REPORT -------- Dictated By: Annalisa Odonnell Dictated Date: 09/06/2024 14:38 ET Assigned Physician: Annalisa Odonnell Reviewed and Electronically Signed By: Annalisa Odonnell Signed Date: 09/06/2024 14:42 ET Workstation ID: [id number] Transcribed By: Self Edit Transcribed Date: 09/06/2024 14:38 ET Issa Slade MD IMG IR PROCEDURES Final Result * Non-gynecologic cytology (09/05/2024 12:23 PM EDT) Final Diagnosis Pelvis, adnexal cyst (ThinPrep, cell block): No malignant cells identified Serous ciliated epithelium without atypia and histiocytes, consistent with benign serous cystadenoma contents 09/06/2024 2:12 PM EDT [facility] Specimen A Adequacy Satisfactory for evaluation 09/06/2024 2:12 PM EDT [facility] Gross Description A. Pelvis, adnexal cyst: Received 15 ml yellow cloudy fluid 1 thin prep, 1 cell block Formalin fixation time 7 put cell block in formalin at 1400 09/06/2024 2:12 PM EDT [facility] Disclaimer Unless otherwise specified, all tissue is 10% NB formalin fixed and paraffin embedded. Technical cytopathology services provided by [facility], at [address] [place] [address] (CLIA # [id number]/Don Zavala MD, Right Of Way Man.) 09/06/2024 2:12 PM EDT [facility] Aspirate Pelvic region / Unknown 09/05/2024 12:23 PM EDT 09/05/2024 1:38 PM EDT us Annalisa Odonnell MD LAB CYTOLOGY ORDERABLES Final R esult [facility] [address] [place] [address], * (ABNORMAL) Comprehensive metabolic panel (02/25/2024 1:32 PM EST) Sodium 137 133 - 145 mmol/L LAB CHEMISTRY METHOD 02/25/2024 2:20 PM EST [facility] Potassium 4.0 3.5 - 5.5 mmol/L LAB CHEMISTRY METHOD 02/25/2024 2:20 PM EST [facility] Comment:Hemolysis present Chloride 100 96 - 110 mmol/L LAB CHEMISTRY METHOD 02/25/2024 2:20 PM EST [facility] CO2 35(H) 21 - 32 mmol/L LAB CHEMISTRY METHOD 02/25/2024 2:20 PM EST [facility] Anion Gap 2(L) 3 - 11 LAB CHEMISTRY METHOD 02/25/2024 2:20 PM [facility] Glucose 176(H) 70 - 100 mg/dL LAB CHEMISTRY METHOD 02/25/2024 2:20 PM [facility] BUN 19 5 - 25 mg/dL LAB CHEMISTRY METHOD 02/25/2024 2:20 PM [facility] Creatinine 1.00 0.50 - 1.10 mg/dL LAB CHEMISTRY METHOD 02/25/2024 2:20 PM [facility] eGFR 62 >=60 mL/min/1. 73m2 LAB CHEMISTRY METHOD 02/25/2024 2:20 PM [facility] Comment:Calculation based on the Chronic Kidney Disease Epidemiology Collaboration (CKD-EPI) equation refit without adjustment for race. BUN/Creatinine Ratio 19.0 LAB CHEMISTRY METHOD 02/25/2024 2:20 PM [facility] Calcium 9.6 8.5 - 10.5 mg/dL LAB CHEMISTRY METHOD 02/25/2024 2:20 PM [facility] AST (SGOT) 20 10 - 42 unit/L LAB CHEMISTRY METHOD 02/25/2024 2:20 PM [facility] Comment:Hemolysis present ALT (SGPT) 21 10 - 60 unit/L LAB CHEMISTRY METHOD 02/25/2024 2:20 PM [facility] Alkaline Phosphatase 93 42 - 121 unit/L LAB CHEMISTRY METHOD 02/25/2024 2:20 PM [facility] Total Protein 7.7 6.0 - 8.0 g/dL LAB CHEMISTRY METHOD 02/25/2024 2:20 PM [facility] Albumin 3.9 3.2 - 5.0 g/dL LAB CHEMISTRY METHOD 02/25/2024 2:20 PM [facility] Total Bilirubin 0.7 0.0 - 1.4 mg/dL LAB CHEMISTRY METHOD 02/25/2024 2:20 PM [facility] Blood Venous blood specimen / Unknown Venipuncture / Unknown 02/25/2024 1:32 PM EST 02/25/2024 1:43 PM EST us Reddy Arroyo DO LAB BLOOD ORDERABLES Final Res ult [facility] [address] [place] [address], * Colonoscopy (01/20/2023) Colonoscopy NO INTERPRETATION , ABSTRACTED Anatomical Region Laterality Modality Other Historical Provider MD HEALTH MAINTENANCE Final Result from Last 3 Months or Most Recently Relevant to Health Maintenance Additional Health Concerns Infection Onset Date Last Indicated ESBL 01/23/2024 01/23/2024 Insurance [facility] Care Teams Director [employer] Relationship Specialty Start Date End Date Maribel Sibley [address] [place] [phone] PCP - General 01/23/24
[2024-11-23 12:30] VITALS: BMI 38.0
--- NOTE | 2024-11-23 15:07 | HO.ANESPROP2 ---
Documented by User: Magda Marte NP 11/23/24 15:11 HPI - Anesthesia Eval Consult details Narrative: 69 yr old female for TUR bladder tumor with LEFT ureteroscopy, with possible bilateral retrogrades Type 2 DM: A1C 6.6% 12/2023, follows at [place] [facility]: CPAP use unconfirmed PMFSH Active Problems Active Problems: All Active Problems (Updated 09/30/24 @ 08:37 by Gabby Rayo MD) Abnormal cystoscopy (Acute) Gross hematuria (Acute) Past Medical History Medical History Vitamin D deficiency Type 2 diabetes mellitus without complication Restless leg syndrome Primary insomnia Postmenopausal atrophic vaginitis Other obesity due to excess calories Obstructive sleep apnea (adult) (pediatric) Major depressive disorder with single episode Hyperlipidemia Depression Essential (primary) hypertension Disorder of bone density and structure, unspecified Benign neoplasm of colon Allergic rhinitis due to pollen Surgical History Surgical History Hx of biopsy Hx of tonsillectomy Hx of colonoscopy H/O: hysterectomy Social History Social History Patient Tobacco Use Status: Never used Tobacco Have you been hit, kicked, punched, or otherwise hurt by someone within the past year? If so, by whom?: No Are you DNR?: No Advance Directives: No Advance Directives Information Provided: Yes Meds Allergies Allergy/AdvReac Type Severity Reaction Status Date / Time codeine Allergy Unknown Verified 08/06/24 09:38 lisinopril AdvReac Cough Verified 08/06/24 09:38 sulfer Allergy Blister Uncoded 05/02/23 17:07 Home Medications ?Medication ?Instructions ?Recorded ?Confirmed ?Last Taken ?Type atenolol 50 mg tablet 50 mg PO DAILY 05/03/24 11/27/24 11/26/24 History calcium 500 mg (as 2 tab PO DAILY 05/03/24 11/27/24 11/26/24 History carbonate)-vitamin D3 5 mcg (200 unit) tablet carboxymethylcellulose sodium 0.5 1 drp ophthalmic (eye) QID 05/03/24 11/27/24 11/19/24 History % eye drops cephalexin 500 mg tablet 500 mg PO BID 05/03/24 11/27/24 11/26/24 History cetirizine 10 mg tablet 10 mg PO DAILY PRN allergies 05/03/24 11/27/24 09/26/24 History ferrous sulfate 325 mg (65 mg 325 mg PO DAILY 05/03/24 11/27/24 11/26/24 History iron) tablet hydrochlorothiazide 25 mg tablet 25 mg PO DAILY 05/03/24 11/27/24 11/26/24 History hydrochlorothiazide 50 mg tablet 50 mg PO DAILY 05/03/24 11/27/24 11/26/24 History losartan 100 mg tablet 100 mg PO DAILY 05/03/24 11/27/24 11/26/24 History metformin 500 mg tablet 500 mg PO DAILY 05/03/24 11/27/24 11/26/24 History simvastatin 40 mg tablet 40 mg PO DAILY 05/03/24 11/27/24 11/26/24 History Exam Height,Weight and Vital Signs: Height 5 ft 1 in Weight 91.172 kg Pertinent Lab Results Pertinent Lab Results: Laboratory Tests 11/09/24 09:38 WBC 7.1 RBC 4.81 Hgb 12.5 Hct 39.2 Plt Count 302 Sodium 140 Potassium 3.9 BUN 15 Creatinine 0.70 Narrative Narrative: EKG 10/2024 Vent. Rate : 50 BPM Atrial Rate : 50 BPM P-R Int : 184 ms QRS Dur : 88 ms QT Int : 408 ms P-R-T Axes : 64 43 54 degrees QTcB Int : 371 ms Sinus bradycardia Otherwise normal ECG When compared with ECG of 02-May-2023 17:27, No significant change was found Documented by User: Zoila Mclean MD 11/27/24 07:25 [facility] Past Medical History Medical History Vitamin D deficiency Type 2 diabetes mellitus without complication Restless leg syndrome Primary insomnia Postmenopausal atrophic vaginitis Other obesity due to excess calories Obstructive sleep apnea (adult) (pediatric) Major depressive disorder with single episode Hyperlipidemia Depression Essential (primary) hypertension Disorder of bone density and structure, unspecified Benign neoplasm of colon Allergic rhinitis due to pollen Surgical History Surgical History Hx of biopsy Hx of tonsillectomy Hx of colonoscopy H/O: hysterectomy History of Problems with Anesthesia: No Social History Social History Patient Tobacco Use Status: Never used Tobacco Have you been hit, kicked, punched, or otherwise hurt by someone within the past year? If so, by whom?: No Are you DNR?: No Advance Directives: No Advance Directives Information Provided: Yes Meds Allergies Allergy/AdvReac Type Severity Reaction Status Date / Time codeine Allergy Unknown Verified 08/06/24 09:38 lisinopril AdvReac Cough Verified 08/06/24 09:38 sulfer Allergy Blister Uncoded 05/02/23 17:07 Home Medications ?Medication ?Instructions ?Recorded ?Confirmed ?Last Taken ?Type atenolol 50 mg tablet 50 mg PO DAILY 05/03/24 11/27/24 11/26/24 History calcium 500 mg (as 2 tab PO DAILY 05/03/24 11/27/24 11/26/24 History carbonate)-vitamin D3 5 mcg (200 unit) tablet carboxymethylcellulose sodium 0.5 1 drp ophthalmic (eye) QID 05/03/24 11/27/24 11/19/24 History % eye drops cephalexin 500 mg tablet 500 mg PO BID 05/03/24 11/27/24 11/26/24 History cetirizine 10 mg tablet 10 mg PO DAILY PRN allergies 05/03/24 11/27/24 09/26/24 History ferrous sulfate 325 mg (65 mg 325 mg PO DAILY 05/03/24 11/27/24 11/26/24 History iron) tablet hydrochlorothiazide 25 mg tablet 25 mg PO DAILY 05/03/24 11/27/24 11/26/24 History hydrochlorothiazide 50 mg tablet 50 mg PO DAILY 05/03/24 11/27/24 11/26/24 History losartan 100 mg tablet 100 mg PO DAILY 05/03/24 11/27/24 11/26/24 History metformin 500 mg tablet 500 mg PO DAILY 05/03/24 11/27/24 11/26/24 History simvastatin 40 mg tablet 40 mg PO DAILY 05/03/24 11/27/24 11/26/24 History Exam Airway Mallampati Class: III TM Dist: >3cm Neck ROM: Full Loose/Missing/Broken Teeth: No Heart: RRR Lungs: CTA Assessment and Plan Assessment Anesthesia Assessment: Anesthesia Plan Discussed and Chart Reviewed Final Anesthetic Review History of Problems with Anesthesia: No NPO: Yes ASA Class: III Final Preanesthetic Review: Meds/Allgs Chart Reviewed, Consent Obtained/Reviewed and Anes Risks/Benef Reviewed Patient Risk: Intermediate Procedure Risk: Low Anesthetic Plan Anesthetic Plan: GA Disposition: Standard PACU
[2024-11-27] VITALS (7 sets, daily range): BP systolic 128–155; BP diastolic 57–87; PULSE 51–78; RESP 14–19; TEMP 36.3–36.4; O2SAT 94–100; BMI 38.4
--- NOTE | ~2024-11-27 | FL_ITS ---
EXAMINATION: FL GUIDANCE ONLY HISTORY: Bilateral retrograde COMPARISON: Correlation is made with a CT urogram dated 07/11/2024. TECHNIQUE: Fluoroscopy time: 0.7 minutes. Cumulative Dose: 10.4 mGy. DAP: 0.180 mGym2 Images: 6. FINDINGS: Fluoroscopic spot films from a bilateral retrograde study of the ureters was performed. The intrarenal collecting systems are unremarkable in appearance. The ureters are normal in caliber, but are incompletely evaluated. FL/FL guidance in OR IMPRESSION: Fluoroscopy during procedure. Please see procedure report for additional information. Electronically signed by: Griffin Cortez MD 11/29/2024 10:55 AM EDT
[2024-11-27 06:31] LABS: Glucose, Whole Blood 189 mg/dL (60-115)
[2024-11-27] MEDS: Lactated Ringers 1,000 ML 100 ML IVCONT (06:44)
--- NOTE | 2024-11-27 07:25 | MHC.SHP ---
Pre-Procedural Eval Section A - 24 Hr Update-Section A only Date of Service: 11/27/24 The patient is an INPATIENT: No The patient has been examined within 24 hours of the surgical procedure. The History & Physical has been completed within 30 days and I have reviewed it.: Yes Section B - Complete if H&P > 30 days Chief Complaint: Gross hematuria Allergies: Allergies Allergy/AdvReac Type Severity Reaction Status Date / Time codeine Allergy Unknown Verified 08/06/24 09:38 lisinopril AdvReac Cough Verified 08/06/24 09:38 sulfer Allergy Blister Uncoded 05/02/23 17:07 Plan Diagnosis/Plan: Unchanged I have reviewed the history and physical and performed a pertinent physical examination on my patient. No changes have occurred unless specified. Cystoscopy TUR bladder tumor, bladder biopsies, bilaterate retrogrades, possible left ureteroscopy. Discussed risks to include but not limited to, blood in the urine, burning with urination, urgency. Time Spent With Patient Time: Total time managing care of this patient today ____ minutes.
--- NOTE | 2024-11-27 07:26 | W.PM.OPN ---
Operative Note Operative Note Date of Service: 11/27/24 Narrative: PREOP DIAGNOSIS: Gross hematuria, lesion left ureter POSTOP DIAGNOSIS: Gross hematuria, lesion left ureter PROCEDURE: Cystoscopy, bladder biopsy, TUR lesion left ureter, bilateral retrogrades SURGEON: Gabby Rayo MD ANESTHESIA: General Findings: Left ureter lesion greater than 5 cm Details of procedure: The patient was brought into the operating room placed on the OR table in supine position. IV antibiotics confirmed. General anesthesia was administered. The patient was repositioned into lithotomy position, prepped and draped in the usual sterile fashion. Time-out was done per protocol. A 22 fr cystoscope was placed transurethrally into the bladder. The right and left ureteral orifices were visualized. There were no suspicious bladder wall lesions. There was abnormal tissue extruding from the left ureteral orifice, appearing as an intussusception of tissue extruding from the ureter. Bilateral retrogrades were done there was a filling defect noted in the left distal ureter. The right retrograde was normal. A guidewire was placed into the left ureter and the rigid ureteroscope was placed into the left ureter which was passed distally, the ureteroscope was not able to be manipulated beyond the abnormal growth. Leaving the guidewire in place the ureteroscope was removed. The cystoscope was replaced. Using the flexible biopsy forceps bladder biopsies were obtained from the posterior wall and the left lateral wall. The resectoscope was then placed transurethrally using the loop working element the biopsied areas were cauterized to obtain adequate hemostasis; the lesion/abnormal tissue extruding from the left ureter was partially resected to send for tissue analysis. There was minimal bleeding noted from the left ureteral orifice at the end of the resection. 2% lidocaine urojet was passed transurethrally into the bladder. The patient was brought out of anesthesia and taken to recovery in stable condition. Complications: None Drains: none
== END 2024-11-27 09:44 | disposition home or self-care (01) ==
PROVIDERS: Visit Provider Urology
PROC: 0TBB8ZZ Excision of Bladder, Via Natural or Artificial Opening Endoscopic (ICD-10-PCS; CPT 52354; principal; 2024-11-27 07:30)
DX: R31.0 Gross hematuria (principal); N28.89 Other specified disorders of kidney and ureter; N30.81 Other cystitis with hematuria; N32.89 Other specified disorders of bladder; E11.9 Type 2 diabetes mellitus without complications; E55.9 Vitamin D deficiency, unspecified; G47.33 Obstructive sleep apnea (adult) (pediatric); F32.A Depression, unspecified; Z79.84 Long term (current) use of oral hypoglycemic drugs; Z79.899 Other long term (current) drug therapy; Z88.2 Allergy status to sulfonamides; Z88.5 Allergy status to narcotic agent; Z88.8 Allergy status to other drugs, medicaments and biological substances
CPT/HCPCS: 52354; 82947; 88305; C1758; C1769; J0690; J2003; J2405; J2704; J3010; Q9967

== ENCOUNTER → 2024-11-27 06:05 | Outpatient (BNV) | payer OTHER, SELFPAY | PROVIDERS: Visit Provider Urology | DX: R31.0 Gross hematuria (principal); N28.89 Other specified disorders of kidney and ureter | CPT/HCPCS: 52354; 74420 ==

== ENCOUNTER 2024-12-10 15:30 | Outpatient (AMB) | payer OTHER, SELFPAY ==
--- NOTE | 2024-12-10 15:38 | MHC.OFFVIS ---
Intake Visit Reasons: TUR Bladder Tumor follow up Intake Note: Patient presents for TUR bladder tumor follow up Urology Medication: None Antibiotic Allergies: None Blood Thinners: None Allergies codeine Allergy (Verified 12/10/24 15:39) Unknown lisinopril Adverse Reaction (Verified 12/10/24 15:39) Cough sulfer Allergy (Uncoded 05/02/23 17:07) Blister HPI Comments Details: 12/10/24--Rebecca is status post cystoscopy TUR left ureteral lesion and bladder biopsies. I have reviewed pathology which diagnosis of benign urothelium with minimal chronic inflammation and polypoid cystitis no evidence of malignancy inflammatory tissue no no any malignancy so [place] when I look really abnormal not normally in the so we will sounds 6 months make sure there is no swelling reason saying that it the tissue coming out of the opening hanging out as so I want make sure no blockage there was not before when we did the CAT scan given ultrasound is his change so we will do the do a phone call to go over the results the usage your doing good no blood in the urine for dull in the Pyridium insert urine orange color omayra a little bit 0 no I do not was the other a 08/06/2024-here for office cystoscopy. Cystoscopy findings: There is a growth extruding from the left ureteral orifice, mild to moderate trabeculations. 69-year-old female presenting for follow-up I have discussed on CT urogram urinary tract was within normal limits. left ovarian cyst noted. The patient states that she is being followed by [facility] for the left ovarian cyst and has been referred to [facility] for further testing and management. I have discussed further management to include cystoscopy TURBT with left ureteroscopy and possible bilateral retrogrades Results - CT Scan: 07/11/2024-CT urogram --Kidneys are normal, adnexa cyst present on the left side, 3.6 cm left lower quadrant cyst likely adnexal. 05/10/24--Rebecca is a 69-year-old female who is here for evaluation due to gross hematuria and recurrent UTIs. The patient is a . She was in the [employer]. She states that she had complicated UTI as she was told the bacteria was resistant to many antibiotics. She states that this may have been due to the fact she had treatment with antibiotics for several infections including a sinus infection and tooth abscess. The patient has history of hysterectomy. I have discussed therapy with use of low-dose estrogen vaginal therapy with Vagifem. I have discussed further evaluation with CT urogram and office cystoscopy. [facility] Medical History Vitamin D deficiency Type 2 diabetes mellitus without complication Restless leg syndrome Primary insomnia Postmenopausal atrophic vaginitis Other obesity due to excess calories Obstructive sleep apnea (adult) (pediatric) Major depressive disorder with single episode Hyperlipidemia Depression Essential (primary) hypertension Disorder of bone density and structure, unspecified Benign neoplasm of colon Allergic rhinitis due to pollen Surgical History Hx of biopsy Hx of tonsillectomy Hx of colonoscopy H/O: hysterectomy Social History Patient Tobacco Use Status: Never used Tobacco Assessment & Plan Assessment & Plan Orders: Orders AMB Urinalysis Automated 12/11/24 Z13.9 - Encounter for screening, unspecified Medications: Refilled estradiol (Vagifem) Insert vaginally two times a week Tuesday and at Bedtime. 10 mcg vaginal 2XW 24 tabs 1RF Coding
== END 2024-12-10 16:21 | disposition home or self-care (01) ==
LOC: HO.HUSH 15:30
PROVIDERS: Visit Provider Urology
DX: Z13.9 Encounter for screening, unspecified (principal)

== ENCOUNTER → 2024-12-10 15:30 | Outpatient (BNVA) | payer OTHER, SELFPAY | PROVIDERS: Visit Provider Urology | DX: N95.2 Postmenopausal atrophic vaginitis (principal) | CPT/HCPCS: 81003; 99212 ==